=== PATIENT | female | born 1965 | race Caucasian/White ===

== ENCOUNTER → 2017-10-20 07:02 | Outpatient (CLI) | payer OTHER, SELFPAY ==
[2017-10-20 07:08] LABS: Bacteria 0 SEEN /hpf (None Seen); Mucous, Urine 0 SEEN /hpf (<or=2+); Red Blood Cells-Urine 0 SEEN /hpf (0-5)
[2017-10-20 09:53] LABS: Absolute Lymphocyte Count 4.15 X10^3/ul (0.83-4.51); Basophil# 0.01 X10^3/uL; Basophil% 0.1 % (0-1); Color, Urine Yellow (Yellow); Eosinophil# 0.11 X10^3/uL; Eosinophils% 1.3 % (0-5); Glucose, Dipstick Normal (Normal); Hematocrit 40.7 % (37-47); Ketone-Dipstick Negative (Negative); Leukocyte Esterase-Dipstick 25 /ul (Negative); Lymphocyte # 4.15 X10^3/ul (4.0); Lymphocyte % 47.9 % (19-41); Mean Corp Hgb Conc 31.9 g/gl (32-36); Mean Corpuscular Hgb 31.9 pg (27.0-32.0); Mean Platelet Vol. 10.1 fl (6.2-12.0); Monocyte# 0.35 X10^3/uL; Neutrophil # 4.03 X10^3/uL (2.7-7.7); Neutrophil % 46.6 % (47-70); Nitrite-Dipstick Negative (Negative); Occult Blood-Urine Negative /ul (Negative); POSITIVE COUNT NO; POSITIVE DIFFERENTIAL NO; POSITIVE MORPHOLOGY NO; Platelet Count 298 K/mm3 (150-450); Protein-Dipstick Negative (Negative); RBC Distribution Width CV 12.9 % (11.6-14.6); RBC Distribution Width SD 47.2 fl (35.1-43.9); Red Blood Count 4.07 M/mm3 (4.2-5.4); Specific Gravity, Urine 1.015 (1.002-1.030); Urine Bilirubin Dipstick Negative (Negative); Urine Clarity Sl. Cloudy (Clear); Urine Urobilinogen Normal (Normal); White Blood Count 8.7 K/mm3 (4.4-11.0)
[2017-10-20 09:59] LABS: Squamous Epithelial Cells - UA 5-10 SEEN /hpf (5-10); White Blood Cells 0-5 SEEN /hpf (0-5)
[2017-10-20 10:04] LABS: Erythrocyte Sedimentation Rate 9 mm/hr (0-30)
[2017-10-20 10:08] LABS: ALB/GLOB Ratio 0.9 RATIO (0.9-2.4); AST(SGOT) 10 U/L (15-37); Alanine Aminotransfer ALT/SGPT 28 U/L (13-56); Albumin, Serum 3.3 g/dL (3.2-5.0); Alkaline Phosphatase 65 U/L (45-117); Anion Gap 8 (5-15); BUN 14 mg/dL (7-18); BUN/Creat Ratio 20.2 RATIO (10-20); Calcium,Total 8.7 mg/dL (8.5-10.1); Chloride 103 mmol/L (98-107); Creatinine, Serum 0.69 mg/dL (0.55-1.02); EST Glomerular Filtration Rate 95 mL/min (>60); Est Glom Filt Rate - Afr Amer 115 mL/min (>60); Globulin 3.5 g/dL (2.2-4.2); Glucose 105 mg/dL (70-110); Potassium 3.8 mmol/L (3.5-5.1); Protein, Total 6.8 g/dL (6.4-8.2); Sodium Level 139 mmol/L (136-145)
[2017-10-21 20:09] LABS: Endomysial Antibody IgA Negative (Negative)
[2017-10-22 09:00] LABS: Immunoglobulin A 244 mg/dL (87-352); t-Transglutaminase IgA <2 U/mL (0-3)
== END ==
PROVIDERS: Family Provider Family Medicine; PCP Family Medicine; Visit Provider Family Medicine
DX: K52.9 Noninfective gastroenteritis and colitis, unspecified (principal); M54.5 Low back pain
CPT/HCPCS: 36415; 80053; 81001; 82784; 83516; 85025; 85652; 86255

== ENCOUNTER → 2018-10-06 09:08 | Outpatient (CLI) | payer OTHER, SELFPAY ==
[2018-10-06 11:35] LABS: Hematocrit 40.9 % (37-47); Hemoglobin 13.3 g/dl (12.0-15.0); Mean Corp Hgb Conc 32.5 g/gl (32-36); Mean Corpuscular Hgb 31.9 pg (27.0-32.0); Mean Corpuscular Volume 98.1 fL (81-99); Mean Platelet Vol. 10.1 fl (6.2-12.0); Platelet Count 290 K/mm3 (150-450); RBC Distribution Width CV 12.4 % (11.6-14.6); RBC Distribution Width SD 44.2 fl (35.1-43.9); Red Blood Count 4.17 M/mm3 (4.2-5.4); White Blood Count 7.4 K/mm3 (4.4-11.0)
[2018-10-06 11:37] LABS: Scan Indicated on CBC? Y/N NO
[2018-10-06 11:56] LABS: Follicle Stimulating Hormone 52.4 mIU/mL; Thyroid Stim Hormone (TSH) 0.85 uIU/mL (0.358-3.74)
--- OUTSIDE RECORDS SUMMARY | 2018-12-10 16:07 | XMS RPT_ITS ---
:1965 Author Organization OHIP Care Team Providers Name Role Phone Yessenia Sears Attending Unavailable Haresh Potts Attending Unavailable Haresh Potts Referring Unavailable Haresh Potts Primary Care Unavailable PROBLEMS PROBLEMS DATE TYPE CONDITION / CODE ATTENDING STATUS SOURCE 2018 Unknown N95.1 - Menopausal Yessenia Sears Active [facility] and female Community climacteric states / Hospital N95.1(ICD-10) Repository 10/20/2017 Unknown K52.9 - Noninfective Haresh Potts Active [facility] gastroenteritis and Community colitis, unspecified Hospital / K52.9(ICD-10) Repository 10/20/2017 Unknown M54.5 - Low back pain Haresh Potts Active [place] / M54.5(ICD-10) [facility] Repository PROCEDURES PROCEDURES No Procedure Records FoundRESULTS RESULTS CBC-COMPLETE BLOOD CNT Collected: 2018 Status: F Source: [facility] NO DIFF 9:12 AM [facility] REPOSITORY TYPE CODE TESTS RESULT OUT OF RANGE REFERENCE UNITS LAB L100.1000 4.4-11.0 K/mm3 Normal WBC 7.4 LAB L100.1200 4.2-5.4 M/mm3 Low RBC 4.17 LAB L100.1300 12.0-15.0 g/dl Normal HGB 13.3 LAB L100.1400 37-47 % Normal HCT 40.9 LAB L100.1500 81-99 fL Normal MCV 98.1 LAB L100.1600 27.0-32.0 pg Normal MCH 31.9 LAB L100.1700 32-36 g/gl Normal MCHC 32.5 LAB L100.1810 11.6-14.6 % Normal RDW CV 12.4 LAB L100.1820 35.1-43.9 fl High RDW SD 44.2 LAB L100.1900 150-450 K/mm3 Normal PLT 290 LAB L100.2000 6.2-12.0 fl Normal MPV 10.1 Performed By: #### L100.0500 #### [facility] [address], [place], [address] THYROID STIM HORMONE Collected: 2018 Status: F Source: [facility] (TSH) 9:12 AM [facility] REPOSITORY TYPE CODE TESTS RESULT OUT OF RANGE REFERENCE UNITS LAB L501.9520 0.358-3.74 uIU/mL Normal TSH 0.85 Performed By: #### L501.9520, L3100.5125 #### [facility] [address] [place], [address] FOLLICLE STIMULATING Collected: 2018 Status: F Source: [facility] HORMONE 9:12 AM [facility] REPOSITORY TYPE CODE TESTS RESULT OUT OF RANGE REFERENCE UNITS LAB L3100.5125 mIU/mL Normal FSH 52.4 Result Comment: NORMAL REFERENCE RANGES FEMALE FOLLICULAR 2.3 - 12.6 mIU/mL MID-CYCLE PEAK 5.2 - 17.5 mIU/mL LUTEAL 1.7 - 12.9 mIU/mL POST-MENOPAUSAL ON MHT 5.9 - 72.8 mIU/mL NOT ON MHT 12.7 - 132.2 mlU/mL MALE 0.7 - 10.8 mIU/mL NEW TEST METHOD AND REFERENCE RANGES FEBRUARY 07, 2012 Performed By: #### L501.9520, L3100.5125 #### [facility] [address] [place], [place], [id number] CBC W/DIFF, AUTOMATED Collected: 10/20/2017 Status: F Source: [place] 7:07 AM [facility] REPOSITORY TYPE CODE TESTS RESULT OUT OF RANGE REFERENCE UNITS LAB L100.1000 4.4-11.0 K/mm3 Normal WBC 8.7 LAB L100.1200 4.2-5.4 M/mm3 Low RBC 4.07 LAB L100.1300 12.0-15.0 g/dl Normal HGB 13.0 LAB L100.1400 37-47 % Normal HCT 40.7 LAB L100.1500 81-99 fL High MCV 100.0 LAB L100.1600 27.0-32.0 pg Normal MCH 31.9 LAB L100.1700 32-36 g/gl Low MCHC 31.9 LAB L100.1810 11.6-14.6 % Normal RDW CV 12.9 LAB L100.1820 35.1-43.9 fl High RDW SD 47.2 LAB L100.1900 150-450 K/mm3 Normal PLT 298 LAB L100.2000 6.2-12.0 fl Normal MPV 10.1 LAB L100.2100 47-70 % Low NEUT% 46.6 LAB L100.2200 19-41 % High LY% 47.9 LAB L100.2300 0-10 % Normal MONO% 4.0 LAB L100.2400 0-5 % Normal EO% 1.3 LAB L100.2500 0-1 % Normal BASO% 0.1 LAB L100.2550 0.0-0.9 % Normal IM GRAN % 0.100 Result Comment: IG% - Immature Granulocytes (promyelocytes, myelocytes and metamyelocytes) > 1% indicates that a LEFT SHIFT is Present. LAB L100.2620 2.0-7.7 X10 3/uL Normal Absolute Neut 4.0 LAB L100.2720 0.83-4.51 X10 3/ul Normal Absolute Lymph 4.15 Performed By: #### L100.0100, L101.9900 #### [facility] [address] [place], [place], [address] ERYTHROCYTE SED RATE Collected: 10/20/2017 Status: F Source: [place] 7:07 AM [facility] REPOSITORY TYPE CODE TESTS RESULT OUT OF RANGE REFERENCE UNITS LAB L102.0000 0-30 mm/hr Normal SED RATE 9 Performed By: #### L100.0100, L101.9900 #### [facility] [address] [place], [place], [id number] URINALYSIS, COMPLETE Collected: 10/20/2017 Status: F Source: [place] 7:07 AM [facility] REPOSITORY Order Comment: How was Urine Obtained? CLEAN CATCH TYPE CODE TESTS RESULT OUT OF RANGE REFERENCE UNITS LAB L400.3000 Yellow COLOR Normal Yellow LAB L400.3050 Clear Normal CLARITY Sl. Cloudy LAB L400.3200 Normal mg/dl Normal GLUCOSE, UR Normal LAB L400.3300 Negative mg/dL Normal BILIRUBIN URINE Negative LAB L400.3400 Negative mg/dl Normal KETONE UR Negative LAB L400.3465 1.002-1.030 Normal SP.GR. DIPSTX 1.015 LAB L400.3550 5.0 - 8.0 pH UR Normal 6.0 LAB L400.3600 Negative mg/dl PROT Normal DIPSTX Negative LAB L400.3700 Normal mg/dl Normal UROBILI Normal LAB L400.3750 Negative Normal NITRITE UR Negative LAB L400.3780 Negative /ul Normal OCCULT BLOOD-UR Negative LAB L400.3800 Negative /ul High LEUK 25 ESTERASE LAB L400.4050 0-5 /hpf WBC Normal 0-5 SEEN LAB L400.4100 0-5 /hpf 0 Normal RBC-UA SEEN LAB L400.4150 5-10 /hpf SQUAM Normal EPI 5-10 SEEN LAB L400.4300 None Seen /hpf 0 Normal BACTERIA SEEN LAB L400.4350 <or=2+ /hpf 0 Normal MUCUS, URINE SEEN Performed By: #### L400.0001 #### [facility] [address] [place], [place], [id number] COMPREHENSIVE METABOLIC Collected: 10/20/2017 Status: F [facility] REPOSIT[facility] TYPE CODE TESTS RESULT OUT OF RANGE REFERENCE UNITS LAB L501.0100 70-110 mg/dL Normal GLU 105 LAB L501.1000 7-18 mg/dL Normal BUN 14 LAB L501.1100 0.55-1.02 mg/dL Normal 0.69 CREAT,SERUM Result Comment: The validity of the calculated GFR AND GFRAA in patients over 70 years has not been determined. Clinical correlation is essential. LAB L501.1110 >60 mL/min Normal EST GFR 95 Result Comment: Non- GFR Calc LAB L501.1115 >60 mL/min Normal EST GFR - AA 115 Result Comment: GFR Calc LAB L501.1300 10-20 RATIO High BUN/CRE 20.2 LAB L501.1500 6.4-8.2 g/dL T Normal PROT 6.8 LAB L501.1800 3.2-5.0 g/dL Normal ALB 3.3 LAB L501.1950 2.2-4.2 g/dL Normal GLOB 3.5 LAB L501.2000 0.9-2.4 RATIO Normal A/G 0.9 LAB L501.2200 8.5-10.1 mg/dL CA Normal 8.7 LAB L501.4100 15-37 U/L Low AST 10 LAB L501.4305 45-117 U/L Normal ALK P 65 LAB L501.4405 13-56 U/L Normal ALT 28 Result Comment: Please note revised ALT reference range effective 2017. LAB L501.4600 0.20-1.00 mg/dL Normal T BILI 0.40 LAB L501.5300 136-145 mmol/L Normal NA 139 LAB L501.5600 3.5-5.1 mmol/L Normal K 3.8 LAB L501.5900 98-107 mmol/L Normal CL 103 LAB L501.6100 21.0-32.0 mmol/L Normal CO2 28.0 LAB L501.6200 5-15 Normal GAP 8 Performed By: #### L500.4050 #### [facility] [address] [place], [address] CELIAC DISEASE Collected: 10/20/2017 Status: F Source: [facility] PROFILE 7:07 AM [facility] REPOSITORY TYPE CODE TESTS RESULT OUT OF RANGE REFERENCE UNITS LAB L3200.1400 87-352 mg/dL Normal IMMUNO A 244 Result Comment: Performed at: - [facility] [place] [id number] Software Development Project Manager: Dov Mohr PhD, Phone: [phone] LAB L3286.0207 0-3 U/mL Normal tTG IGA <2 Result Comment: Negative 0 - 3 Weak Positive 4 - 10 Positive >10 Tissue Transglutaminase (tTG) has been identified as the endomysial antigen. Studies have demonstr- ated that endomysial IgA antibodies have over 99% specificity for gluten sensitive enteropathy. LAB L3410.6846 Negative Normal ENDOMYSIAL IGA Negative Performed By: #### L3410.2400 #### [facility] (refer to report for specific site) refer to report for address and phone number ALLERGIES ALLERGIES DATE TYPE / CODE NAME / CODE REACTION SEVERITY SOURCE 10/10/2017 Drug clidinium Unknown Unknown [facility] Allergy/416 bromide/[id number] Hospital 671994([facility] 47(RXNORM) Repository ED CT) 10/10/2017 Drug cholestyramine/F Unknown Unknown [facility] Allergy/416 [id number]([facility] 135782(SNOM ) Repository ED CT) 10/10/2017 Drug chlordiazepoxide Unknown Unknown [facility] Allergy/416 /[id number]([facility] 441366[facility] ED [facility]) 10/10/2017 Drug hydrocodone/F006 Nausea Unknown [facility] Allergy/416 728023(RXNORM) [facility] 121283(SNOM Repository ED CT) 10/10/2017 Drug acetaminophen/F0 Nausea Unknown [place] [facility] Allergy/416 [id number](RXNORM) Hospital 239696(SNOM Repository ED CT) 10/10/2017 Drug sucrose/[id number] Unknown Unknown [facility] Allergy/416 98(RXNORM) Hospital 782071(SN Repository ED CT) ENCOUNTERS ENCOUNTERS ADMIT/DISCHARGE ACCOUNT ADMITTING ENCOUNTER LOCATION SOURCE NUMBER CLASS 2018 [id number] Ambulatory [place] [facility] 5 [facility] ing:WOBLAB Repository 10/20/2017 [id number] Ambulatory [place] 7 [facility] ing:MTLAB Repository PAYERS PAYERS ENCOUNTER GUARANTOR PAYER SUBSCRIBER SOURCE 2018 [place] [address] [place] [id number] SR Insurance:Geno MOOREOB: [facility] [address] icy Number: [id number] [address]Lac: [id number] Repository Date:[id number] [address]SW: 2018 Secondary NOT GIVENUNK [place] Insurance:SELF PAY [facility] Number: Effective Repository Date:2018 10/20/2017 [place] [address] Primary [address] [address] [place] [id number] SR Insurance:Geno DECKER: [facility] [address] y Number: [id number] [address]Ols: [id number] Repository Date:3583-12-62[address] [address]RP: 10/20/2017 Secondary NOT GIVENUNK [place] Insurance:SELF PAY [facility] Number: Effective Repository Date:2017-10-20
== END ==
PROVIDERS: Visit Provider Obstetrics & Gynecology
DX: N95.1 Menopausal and female climacteric states (principal)
CPT/HCPCS: 36415; 83001; 84443; 85027

== ENCOUNTER → 2019-07-24 07:05 | Outpatient (CLI) | payer OTHER, SELFPAY ==
[2018-11-04 08:51] VITALS: BMI 30.7
[2019-07-24 10:37] LABS: Anion Gap 7 (5-15); BUN 19 mg/dL (7-18); BUN/Creat Ratio 20.5 RATIO (10-20); Calcium,Total 9.1 mg/dL (8.5-10.1); Chloride 104 mmol/L (98-107); Cholesterol 239 mg/dL (200); Creatinine, Serum 0.93 mg/dL (0.55-1.02); EST Glomerular Filtration Rate 67 mL/min (>60); Est Glom Filt Rate - Afr Amer 82 mL/min (>60); Glucose 101 mg/dL (74-106); High Density Lipoprotein 54 mg/dL; Potassium 4.2 mmol/L (3.5-5.1); Sodium Level 140 mmol/L (136-145); Triglycerides 161 mg/dL; Very Low Density Lipoprotein 32 mg/dL (5-40)
== END ==
PROVIDERS: Family Provider Family Medicine; PCP Family Medicine; Referring Provider Family Medicine; Visit Provider Family Medicine
DX: Z13.1 Encounter for screening for diabetes mellitus (principal); E78.00 Pure hypercholesterolemia, unspecified
CPT/HCPCS: 36415; 80048; 80061

== ENCOUNTER → 2020-11-03 12:08 | Outpatient (CLI) | payer OTHER, SELFPAY ==
[2018-11-04 08:51] VITALS: BMI 30.7
--- NOTE | 2020-11-03 12:26 | STEWCON_ITS ---
Reason For Study: Chest Pain Stress Results Protocol: Haile Protocol WITH DEFINITY Maximum Predicted HR: 166 bpm Target HR: 141 bpm % Maximum Predicted HR: 95 % Heart Stage Duration Rate BP Comment (mm:ss) (bpm) baseline 78 118/76no chest pain stage 1 3:00 137 138/78no chest pain, mild shortness of beath stage 2 1:53 157 148/82moderate shortness of breath no chest pain. shortness of breath resolved quickly. 4ml total recovery 86 132/78definity given. Stress Duration: 4:53 mm:ss Maximum Stress HR: 157 bpm Baseline Echocardiogram Findings Stress Echo Wall motion Data Resting WM Intermediate WM Stress WM Interpretation Summary Exercise stress echocardiogram. 55-year-old lady with a history of chest pain and family history. Next Stress protocol: Resting EKG demonstrates normal sinus rhythm with a rate of [address] changes noted. The patient exercised according to regular Haile protocol for total duration of 4 minutes and 53 seconds. The maximum heart rate attained was 166 bpm which was 100% of max impacted heart rate. The maximum workload attained was 7 metabolic equivalents. At rest there were nonspecific ST changes noted with no meet the criteria for ischemia. At peak exercise there was downsloping ST depression noted in lead III and aVF of approximately [address] depression of 1 mm noted in V4 V5 and V6. The test was terminated due to the above. No chest pain was noted there was mild shortness of breath present. During recovery there was a rapid upsloping ST change noted. The above is not diagnostic of ischemia. The resting blood pressure was 118/76 with a peak blood pressure 148/88 mmHg. This was a normal blood pressure response to exercise. Stress echocardiogram. Stress and resting echocardiographic images were obtained with and without Definity enhancement. The resting ejection fraction was noted to be approximately 60%. At peak exercise there was thickening of all chao with improvement in left ventricular ejection fraction estimated to be 70%. No wall motion abnormalities were noted to suggest ischemia. Conclusion: Exercise stress echo with no obvious echocardiographic changes suggestive of ischemia at a moderate workload. Inconclusive EKG changes noted. No symptoms suggestive of angina. Ordering Physician: Haresh Clark Referring Physician: Gutierrez Mix MD Performed By: Pat Good, JOAN, RVT
[2020-11-03 12:36] LABS: Absolute Neutrophil Count 4.6 X10^3/uL (2.0-7.7); Basophil# 0.02 X10^3/uL; Basophil% 0.2 % (0-1); Eosinophil# 0.06 X10^3/uL; Eosinophils% 0.7 % (0-5); Hematocrit 40.8 % (37-47); Hemoglobin 13.3 g/dL (12.0-15.0); Lymphocyte % 40.6 % (19-41); Mean Corp Hgb Conc 32.6 g/dL (32-36); Mean Corpuscular Hgb 31.1 pg (27.0-32.0); Mean Corpuscular Volume 95.3 fL (81-99); Mean Platelet Vol. 9.4 fl (6.2-12.0); Monocyte# 0.43 X10^3/uL; NRBC Flagged by Analyzer 0 % (0-5); Neutrophil # 4.59 X10^3/uL (2.7-7.7); Neutrophil % 53.3 % (47-70); Platelet Count 313 K/mm3 (150-450); RBC Distribution Width CV 12.2 % (11.6-14.6); RBC Distribution Width SD 42.5 fl (35.1-43.9); Red Blood Count 4.28 M/mm3 (4.2-5.4); White Blood Count 8.6 K/mm3 (4.4-11.0)
[2020-11-03 13:07] LABS: ALB/GLOB Ratio 0.9 RATIO (0.9-2.4); AST(SGOT) 16 U/L (15-37); Alanine Aminotransfer ALT/SGPT 20 U/L (13-56); Albumin, Serum 3.5 g/dL (3.2-5.0); Alkaline Phosphatase 69 U/L (45-117); Anion Gap 8 (5-15); BUN 13 mg/dL (7-18); BUN/Creat Ratio 15.7 RATIO (10-20); Chloride 105 mmol/L (98-107); Cholesterol 292 mg/dL (200); Creatinine, Serum 0.83 mg/dL (0.55-1.02); EST Glomerular Filtration Rate 76 mL/min (>60); Est Glom Filt Rate - Afr Amer 92 mL/min (>60); Globulin 3.9 g/dL (2.2-4.2); Glucose 98 mg/dL (74-106); High Density Lipoprotein 49 mg/dL; Protein, Total 7.4 g/dL (6.4-8.2); Sodium Level 137 mmol/L (136-145); Triglycerides 246 mg/dL; Very Low Density Lipoprotein 49 mg/dL (5-40)
== END ==
PROVIDERS: PCP Family Medicine; Referring Provider Family Medicine; Visit Provider Family Medicine
DX: R07.9 Chest pain, unspecified (principal); R10.11 Right upper quadrant pain; Z13.220 Encounter for screening for lipoid disorders
CPT/HCPCS: 36415; 80053; 80061; 85025; 93017; 93350; Q9957; A4216; C8928

== ENCOUNTER → 2020-11-14 08:27 | Outpatient (CLI) | payer OTHER, SELFPAY ==
[2018-11-04 08:51] VITALS: BMI 30.7
--- NOTE | 2020-11-14 08:29 | US_ITS ---
STUDY: ABDOMINAL ULTRASOUND - RIGHT UPPER QUADRANT REASON FOR VISIT: Female, 55 years old RUQ PAIN TECHNIQUE: Ultrasound evaluation of the right upper quadrant was performed with real-time and static ndiaye-scale imaging. TECHNICAL QUALITY: Adequate. COMPARISON: Comparison is made with prior ultrasound of the abdomen dated 04/09/2016. FINDINGS: Liver: The liver is mildly enlarged and measures 19.1 cm. There is increased echogenicity consistent with fatty infiltration. The bile ducts are within normal limits. There is hepatic color flow. The direction of portal flow is hepatopetal. There is no demonstrated mass lesion. Gallbladder: Normal distended gallbladder. The gallbladder wall measures 3.0 mm. There is a negative sonographic Coyne''s sign. There is no pericholecystic fluid. There is a solitary echogenic gallstone within the neck of the gallbladder. Common Bile Duct (C.B.D.): The common bile duct measures 4 mm. Pancreas: Normal size of the head, body of the pancreas. The tail portion of the pancreas is obscured due to overlying bowel gas. There is normal echogenicity of the pancreas. There is no demonstrated pancreatic mass or cyst. Right Kidney: Normal size of the right kidney. The right kidney measures 10.7 cm x 5.9 cm x 5.3 cm. Normal renal cortex. The right cortex measures 1.8 cm. There is no demonstrated renal mass or cyst. There is no right hydronephrosis. US/Abdomen Limited IMPRESSION: Mild hepatomegaly and fatty infiltration of the liver. Solitary gallstone in the neck of the gallbladder. Electronically Signed: Tod Monroe MD at 10:25 EST , Service support ,
== END ==
PROVIDERS: PCP Family Medicine; Referring Provider Family Medicine; Visit Provider Family Medicine
DX: K76.0 Fatty (change of) liver, not elsewhere classified (principal); K80.20 Calculus of gallbladder without cholecystitis without obstruction
CPT/HCPCS: 76705

== ENCOUNTER → 2020-11-21 07:55 | Outpatient (CLI) | payer OTHER, SELFPAY ==
[2018-11-04 08:51] VITALS: BMI 30.7
--- NOTE | 2020-11-21 07:57 | ECHOCS_ITS ---
Reason For Study: Chest Pain Procedure This was a 2D Doppler, Color Flow transthoracic echocardiogram. The study was technically difficult. Contrast injection was performed. Exam performed in department. Left Ventricle Normal LV size. Left ventricular systolic function is normal. The estimated ejection fraction is 60 %. No evidence for diastolic dysfunction. No regional wall motion abnormalities noted. Right Ventricle Normal RV size. Normal systolic function. Atria Normal left atrium. Normal right atrium. No doppler evidence for ASD. Mitral Valve There is mild mitral annular calcification. Mild diffuse mitral valve thickening. Trivial mitral valve insufficiency. Tricuspid Valve Normal tricuspid valve. Trivial tricuspid valve insufficiency. Unable to estimate RV systolic pressure/pulmonary artery pressure due to technically difficult study. Aortic Valve Trisinus/trileaflet aortic valve. Normal aortic valve. Pulmonic Valve The pulmonic valve is not well visualized. Trivial pulmonic valve insufficiency. Great Vessels Normal sized aortic root. Pericardium/Pleural No pericardial effusion. Medication Diluted definity 3ml given slow IV push to enhance endocardial definition. MMode/2D Measurements & Calculations LVIDd: 4.6 cm IVSd: 0.92 cm Ao root diam: 3.0 cm LVIDs: 3.0 cm LVPWd: 0.89 cm RVDd: 3.6 cm FS: 36.0 % LAV(MOD-bp): 38.1 ml LVAd ap4: 27.6 cm2 SV(MOD-sp4): 49.9 ml LAV(MOD-bp) Indexed: 17.6 ml/m2 EDV(MOD-sp4): 81.8 ml LAV(MOD-sp2): 49.3 ml EDV(sp4-el): 84.8 ml LAV(MOD-sp4): 24.3 ml LVAs ap4: 15.3 cm2 ESV(MOD-sp4): 31.9 ml ESV(sp4-el): 31.3 ml EF(MOD-sp4): 61.0 % EF(sp4-el): 63.1 % SV(sp4-el): 53.5 ml LA A4 area: 11.0 cm2 LA dimension(2D): 3.6 cm RA A4 area: 11.9 cm2 Doppler Measurements & Calculations MV E max mike: 87.7 cm/sec Lat Peak E' Mike: 10.5 cm/sec Med Peak E' Mike: 8.7 cm/sec MV A max mike: 68.9 cm/sec E/E' lat: 8.4 E/E' med: 10.1 MV E/A: 1.3 Ao V2 max: 106.8 cm/sec LV V1 max: 98.9 cm/sec PA V2 max: 82.8 cm/sec Ao max P.6 mmHg LV V1 max P.9 mmHg Ao V2 mean: 76.3 cm/sec Ao mean P.5 mmHg Ao V2 VTI: 21.7 cm PI end-d mike: 94.4 cm/sec Interpretation Summary The study was technically difficult. Contrast injection was performed. Left ventricular systolic function is normal. The estimated ejection fraction is 60 %. There is mild mitral annular calcification. Mild diffuse mitral valve thickening. Trivial mitral valve insufficiency. Trivial tricuspid valve insufficiency. Trivial pulmonic valve insufficiency. Unable to estimate RV systolic pressure/pulmonary artery pressure due to technically difficult study. No evidence for diastolic dysfunction. Ordering Physician: Haresh Clark Referring Physician: Haresh Clark Performed By: Pat Good, JOAN, RVT
== END ==
PROVIDERS: PCP Family Medicine; Referring Provider Family Medicine; Visit Provider Family Medicine
DX: R07.9 Chest pain, unspecified (principal)
CPT/HCPCS: 93306; Q9957; A4216; C8929

== ENCOUNTER → 2021-05-06 15:22 | Outpatient (CLI) | payer OTHER, SELFPAY ==
--- NOTE | 2021-05-06 15:30 | RAD_ITS ---
STUDY: X-RAY - LEFT FOOT CLINICAL: Female, 55 years old. Foot and heel pain. TECHNIQUE: 3 view(s) of the foot. COMPARISON: None. FINDINGS: Superior and inferior calcaneal spurs. Normal visualized subtalar, talonavicular, calcaneocuboid, tarsal and tarsometatarsal articulations. Normal metatarsi. Mild loss of articular cartilage of the MTP and IP joints. The soft tissue structures are unremarkable. 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 No acute abnormality, erosive changes or periostitis. Electronically Signed: Atif Ramirez MD at 12:29 EDT , Service support ,
== END ==
PROVIDERS: PCP Family Medicine; Referring Provider Podiatrist; Visit Provider Podiatrist
DX: M76.62 Achilles tendinitis, left leg (principal); M19.072 Primary osteoarthritis, left ankle and foot; M77.32 Calcaneal spur, left foot
CPT/HCPCS: 73630

== ENCOUNTER → 2022-01-19 | Outpatient (CLI) | payer OTHER, SELFPAY ==
--- NOTE | 2022-01-19 08:22 | BI_ITS ---
MAMMOGRAPHY - BILATERAL SCREENING REASON FOR EXAM: Female, 56 years old. Routine annual screening examination. PERTINENT HISTORY: Non-contributory. TECHNIQUE: Digital bilateral breast geeta (3D mammographic acquisition) in the CC and MLO projections. 2-D mediolateral oblique (MLO) and craniocaudad (CC) views of both breasts were obtained. CAD: Full Field Digital Mammography with Computer Added Detection was performed. COMPARISON: No comparison mammograms available at this time. If any prior films become available, an addendum to this report can be generated. FINDINGS: Breast Composition: The breasts are extremely dense, which lowers the sensitivity of mammography. There are no dominant masses or suspicious calcifications. Benign appearing bilateral axillary lymph nodes. No other significant abnormalities are identified. BI/SCRN MAMM (CAD)W/GEETA BILAT IMPRESSION: Negative screening mammogram. Yearly followup mammogram recommended. (A) ASSESSMENT CATEGORY: BIRADS Category 2: Benign. A letter regarding these results will be sent to the patient by the facility within 30 days. Approximately 10% of breast cancers are not detected by mammography. A normal mammogram should not delay biopsy of a clinically suspicious abnormality. [id number] Electronically Signed: Tod Monroe MD at 10:16 EDT ,
[2022-01-19 08:50] LABS: Vitamin D,25 Hydroxy 19.3 ng/mL
[2022-01-19 09:17] LABS: Cholesterol 269 mg/dL (200); Glucose 112 mg/dL (74-106); High Density Lipoprotein 51 mg/dL; Thyroid Stim Hormone (TSH) 1.77 uIU/mL (0.358-3.74); Triglycerides 218 mg/dL; Very Low Density Lipoprotein 44 mg/dL (5-40)
== END | disposition home or self-care (01) ==
LOC: OPBI 08:22
PROVIDERS: Referring Provider Nurse Practitioner Women's Health; Visit Provider Nurse Practitioner Women's Health
DX: Z12.31 Encounter for screening mammogram for malignant neoplasm of breast (principal); Z13.1 Encounter for screening for diabetes mellitus; Z13.220 Encounter for screening for lipoid disorders; Z13.29 Encounter for screening for other suspected endocrine disorder; Z13.21 Encounter for screening for nutritional disorder
CPT/HCPCS: 36415; 77063; 77067; 80061; 82306; 82947; 84443

== ENCOUNTER → 2022-06-18 | Outpatient (CLI) | payer OTHER, SELFPAY ==
--- NOTE | 2022-06-18 08:30 | MRI_ITS ---
STUDY: MRI LEFT ANKLE WITHOUT CONTRAST REASON FOR EXAM: Female, 56 years old. LEFT ankle calcaneal spur TECHNIQUE: Standardized fat and water weighted pulse sequences were obtained in all 3 orthogonal planes. COMPARISON: Left foot x-ray dated May 06, 2021 FINDINGS: Normal subcutis adipose space. Normal posterior tibialis tendon. Normal flexor digitorum longus tendon. Normal flexor hallucis longus tendon. Normal peroneus longus and brevis tendons. Normal tibialis anterior tendon. Normal extensor hallucis longus tendon. Normal extensor digitorum longus tendons. Normal Achilles tendon and teno-osseous insertion. Normal plantar fascia. A small midline plantar calcaneal spur is present. The underlying plantar fascia of the central cord demonstrates mild thickening and increased signal abnormality, compatible with plantar fasciitis. The remaining aspects of the plantar fascia are normal. No visualized plantar bursal fluid. No signal abnormality is present in the trabecula or cortex of the calcaneus. Normal intrinsic muscles of the rearfoot. Normal distal tibiofibular syndesmotic ligamentous complex. The central and inferior fibers of the anterior talofibular ligament are completely torn. A small remnant of superior ATFL fibers remaining intact. Normal subtalar ligaments and sinus tarsi. Normal deltoid ligamentous complexes. Normal plantar calcaneonavicular (spring) ligament. Normal tibiotalar articulation. Normal talar dome. Normal subtalar articulations. Normal talonavicular articulation. Normal calcaneocuboid articulation. Normal navicular-cuneiform articulations. MRI/Lower Ext Joint Only (Routine) IMPRESSION: 1. Small midline plantar calcaneal spur. The underlying plantar fascia of the central cord demonstrates mild thickening and increased signal abnormality, compatible with plantar fasciitis. Electronically Signed: Brandon Knox MD at 12:37 EDT Reading Location ID and State: [facility] / [place] , Service support ,
== END | disposition home or self-care (01) ==
LOC: MRI 08:04
PROVIDERS: PCP Family Medicine; Referring Provider Podiatrist; Visit Provider Podiatrist
DX: M77.32 Calcaneal spur, left foot (principal)
CPT/HCPCS: 73721

== ENCOUNTER 2022-08-13 06:02 | Day surgery (SDC) | payer OTHER, SELFPAY ==
[2022-08-13] VITALS (7 sets, daily range): BP systolic 123–143; BP diastolic 69–89; PULSE 70–84; RESP 16–18; TEMP 36.2–36.6; O2SAT 94–99; BMI 34.3
[2022-08-13] MEDS: Lactated Ringers 1,000 ML 15 ML IV (06:42)
[2022-08-13] MEDS: Cefazolin 1 GM/50 ML BAG IV (07:30)
--- NOTE | 2022-08-13 09:25 | RAD_ITS ---
STUDY: X-RAY - LEFT FOOT CLINICAL: Female, 56 years old. Postoperative evaluation. TECHNIQUE: 2 view(s) of the foot through casting material. COMPARISON: May 06, 2021. FINDINGS: Stable calcaneal spur. Osteoarthritic changes of the MTP and IP joints unaltered . The soft tissue structures are unremarkable. RAD/Foot 2 Views IMPRESSION: Stable foot. No acute abnormality. Electronically Signed: Atif Ramirez, at 10:07 EST ,
--- NOTE | 2022-08-13 12:00 | PCM.OPRPT ---
Report of Operation Date of Procedure: 08/13/22 Pre-Operative Diagnosis: Painful Retrocalcaneal Exostosis Left foot Post-Operative Diagnosis: same Surgery/Procedure Performed:: Excision retrocalcaneal exostosis with reattachment of the Achilles tendon left foot Description of Surgical Findings:: large retrocalcaneal spur Surgeon: Laura Lemon Type of Anesthesia: General and Supplemental (popliteal) Anesthesiologist: Celestino Sage Specimen's removed: bone from calcaneus Drains: none Estimated Blood Loss (mL): <10 cc's Description of Procedure: Under mild sedation, the patient was brought to the OR and a popliteal block was administered by anesthesia. The patient was placed prone on the operating table following general anesthesia. She was well padded at all mitesh prominences. A pneumatic thigh tourniquet was placed about the patient's left thigh and inflated to 350mmHg. The foot and lower left leg were scrubbed, prepped, and draped in the usual aseptic manner. Attention was directed to the left posterior calcaneus where an approximately 5 cm linear longitudinal incision was made medial to the midline of the Achilles. The incision was deepened through sharp and blunt dissection to the level of the Achilles were the paratenon was disected from the Achilles with a longitudinal incision and retracted. The Achilles was within normal limits for appearance and was then dissected from its osseus attachment at the posterior calcaneus. There was a longitudinal incision made at the distal aspect of the tendon and it was split in half superficially about 2 cm. The sural nerve was protected and not visible due to the incision placement. Next, the retrocalcaneal spur was removed with a sagittal saw and all rough edges were smoothed with a hand bur. The wound was flushed with copious amounts of NSS. Next, 4 parallel airplane pilot helper holes were drilled in a square orientation and there perpendicular to the Achilles. The Speed Bridge was then put in place with anchors in all 4 holes which achieved appropriate reattachment length of the Achilles and were stable within the bone. The wound was again flushed with NSS. The Achilles was repaired with 2-0 vicryl sutures. The paratenon was reapproximated and coapted with 3-0 vicryl sutures, as were the subcutaneous tissues. The skin was reapproximated and coapted utilizing 3-0 prolene sutures. Upon completion of the procedure, a sterile compressive dressing consisting of a Jump Start dressing, 4x4's, kerlix, and ABD pad was applied. A well padded posterior splint was applied and secured with magdy wraps. The tourniquet was removed and a prompt hyperemic response was seen to all digits of the left foot. The patient tolerated the procedure and anesthesia and was transferred to the recovery room with vital signs stable and vascular status intact to all digits of the left foot. She will be discharged home with written and oral post operative instructions. She is to be NWB to left foot with crutches and knee walker. She is to take pain medication as directed. Rest, ice, elevate the operative foot and keep dressing intact. Contact Dr. Lemon for all post operative care and if any problems arise. Pain prescription was e-scribed previously for Percocet. Grafts/Implants Used: Arthrex Achilles Speed Bridge Complications none Admit VTE Documentation VTE Pharm Prophylaxis ordered?: No Reason prophylaxis not ordered:: Treatment Not Indicated
== END 2022-08-13 10:35 | disposition home or self-care (01) ==
LOC: SDC 06:02 → AC 06:04
PROVIDERS: PCP Family Medicine; Referring Provider Podiatrist; Visit Provider Podiatrist
PROC: (CPT 28119; principal; 2022-08-13 07:15)
DX: M77.32 Calcaneal spur, left foot (principal); E78.00 Pure hypercholesterolemia, unspecified; E55.9 Vitamin D deficiency, unspecified; R73.01 Impaired fasting glucose; E66.9 Obesity, unspecified; Z68.34 Body mass index [BMI] 34.0-34.9, adult; Z79.899 Other long term (current) drug therapy
CPT/HCPCS: 28120; 01480; 64445; 73620; J7120; J2405

== ENCOUNTER → 2022-09-30 | Outpatient (CLI) | payer OTHER, SELFPAY ==
[2022-09-30 10:18] LABS: Hemoglobin A1c 6.4 % (3.8-5.6)
[2022-09-30 10:32] LABS: Vitamin D,25 Hydroxy 24.2 ng/mL
[2022-09-30 10:35] LABS: AST(SGOT) 11 U/L (15-37); Alanine Aminotransfer ALT/SGPT 23 U/L (13-56); Albumin, Serum 3.6 g/dL (3.2-5.0); Alkaline Phosphatase 89 U/L (45-117); Anion Gap 7 (5-15); BUN 14 mg/dL (7-18); BUN/Creat Ratio 16.1 RATIO (10-20); Calcium,Total 9.5 mg/dL (8.5-10.1); Chloride 103 mmol/L (98-107); Cholesterol 217 mg/dL (200); Creatinine, Serum 0.87 mg/dL (0.55-1.02); EST Glomerular Filtration Rate 72 mL/min (>60); Est Glom Filt Rate - Afr Amer 87 mL/min (>60); Globulin 3.5 g/dL (2.2-4.2); Glucose 116 mg/dL (74-106); High Density Lipoprotein 54 mg/dL; Protein, Total 7.1 g/dL (6.4-8.2); Sodium Level 138 mmol/L (136-145); Triglycerides 175 mg/dL; Very Low Density Lipoprotein 35 mg/dL (5-40)
== END | disposition home or self-care (01) ==
PROVIDERS: PCP Family Medicine; Referring Provider Family Medicine; Visit Provider Family Medicine
DX: E78.2 Mixed hyperlipidemia (principal); R73.01 Impaired fasting glucose; E55.9 Vitamin D deficiency, unspecified
CPT/HCPCS: 36415; 80053; 80061; 82306; 83036

== ENCOUNTER 2023-01-10 11:00 | Outpatient (RCR) | payer OTHER, SELFPAY ==
--- NOTE | 2022-12-17 13:21 | HP.PTEVAL_ITS ---
Patient's Visit Information BENTON DON is a 57 year old F referred to Physical Therapy by Dr. Laura Lemon DPM with a diagnosis of L achilles tendonitis. Date of Evaluation: 12/17/22 Physical Therapist: Edy Harden PT, ATC - Visit Plan Frequency: 2x /Week Duration: 2 Weeks Plan: L ankle DF stretches, gait training, core strengthening, L ankle strengthening, and HEP - Subjective DOS: 08/13/22. Pt reports she had surgery at that time to remove a bone spur under the achilles tendon. Pt reports she was in placed into a boot for approximately 8 weeks and has been walking in a shoe since. Pt notes she has a lot less pain now, but notes she continues to limp which is starting to cause R hip and LBP. Pt reports she still has some tingling in her L foot from the surgery, but notes no other L LE radiculopathy at this time. Pt reports she has stairs at home, but notes she has to negotiate them one step at a time. Pt denies sleep difficulty at this time secondary to pain. Pt reports she used to go walking a lot prior to her surgery, but notes she is still limited in that. Pt also notes increased pain and swelling with cleaning her house. Pt is currently retired at this time. L foot pain is 5/10 at rest, 8/10 at worst (by t he end of the day) - Pain L foot pain Pain Intensity (Out of 10): 5 Pain Intensity Range: 8 - Objective Neuro: B LE sensation is WNL to light touch. B patellar reflex 1/3. ankle ROM: R ankle DF= 4, PF= 65 degrees; L ankle DF= 4, PF= 65 degrees. MMT: L ankle PF is 4-5. All other B LE MMT 5/5 throughout. Gait: Pt lacks both heel strike and toe off with L LE - Balance/Special Test Scores Lower Extremity Functional Score: 45 - Goals Goal 1:: Pt will demonstrate a normalized gait pattern to aid with decreasing LBP Goal Time Frame: 2-4 Weeks Goal 2:: Increase L ankle DF ROM x 5-10 degrees to aid with restoring a more normalized gait pattern Goal Time Frame: 2-4 Weeks Goal 3:: I with HEP Goal Time Frame: 2-4 Weeks - Rehabilitation Potential Physical Therapy Diagnosis: Pt has L heel pain and an altered gait pattern secondary to limited ankle DF ROM and weakness Rehabilitation Potential: Good - Anticipated Interventions Patient/Client Instruction: Educate patient on: Condition, Plan of Care For the Purpose of:: To improve self management Therapeutic Exercise to Include: Strength training, Endurance training, Balance training, Flexibilty training, Gait and locomotor training, Dynamic Lumbar Stabilization For the Purpose of:: To increase ROM, To improve muscle performance and motor function, To improve gait and locomotor functions Thank you for the opportunity to evaluate your patient. For Medicare and Medicare HMO plans, please review the plan of care and approve it. It will need to be FAXED BACK to us at [phone] for Medicare purposes. For Medicare only, by signing this I certify the plan of care. Please let me know if there are questions or concerns regarding this plan of care. Physician Signature: Date:
--- NOTE | 2023-03-24 11:23 | HP.PT.NRP ---
Patient Information Patient Information: BENTON DON was seen in my office for initial evaluation on 12/17/22. The following Plan of Care was established for this patient: POC Established Initial Frequency: 2x /Week Initial Duration: 2 Weeks Anticipated Interventions Patient/Client Instruction: Educate patient on: Condition and Plan of Care For the Purpose of:: To improve self management Therapeutic Exercise to Include: Strength training, Endurance training, Balance training, Flexibilty training, Gait and locomotor training and Dynamic Lumbar Stabilization For the Purpose of:: To increase ROM, To improve muscle performance and motor function and To improve gait and locomotor functions Last Seen Last Seen: This patient was last seen in our office . Pertinent comments regarding their Physical therapy will appear below: Pt was treated for 4 PT visits for L achilles tendonitis through the date of 01/10/23. Pt has not returned through todays date and is discontinued at this time. At this point I will be discontinuing this patient from physical therapy. I would be happy to see this patient again in the future if found appropriate by the physician. Thank you! Edy Harden, PT, ATC Balance/Gait/Functional tests Balance/Special Test Scores Lower Extremity Functional Score: 45
== END 2023-01-10 19:00 | disposition home or self-care (01) ==
LOC: PT 11:00
PROVIDERS: PCP Family Medicine; Referring Provider Podiatrist; Visit Provider Podiatrist
DX: M76.62 Achilles tendinitis, left leg (principal); M77.32 Calcaneal spur, left foot
CPT/HCPCS: 97035; 97140; 97161

== ENCOUNTER → 2023-02-22 | Outpatient (CLI) | payer OTHER, SELFPAY ==
[2023-02-22 12:52] LABS: Vitamin D,25 Hydroxy 43.7 ng/mL
[2023-02-22 13:07] LABS: Hemoglobin A1c 6.3 % (3.8-5.6)
[2023-02-24 12:08] LABS: Vitamin D 1,25-Dihydroxy 64.6 pg/mL (24.8-81.5)
== END | disposition home or self-care (01) ==
LOC: MTLAB 09:28
PROVIDERS: PCP Family Medicine; Referring Provider Family Medicine; Visit Provider Family Medicine
DX: R73.01 Impaired fasting glucose (principal); E55.9 Vitamin D deficiency, unspecified
CPT/HCPCS: 36415; 82306; 82652; 83036

== ENCOUNTER 2023-06-09 07:30 | Observation (INO) | payer OTHER, SELFPAY ==
[2023-06-09] VITALS (8 sets, daily range): BP systolic 104–139; BP diastolic 57–77; PULSE 73–95; RESP 14–18; TEMP 36.1–36.7; O2SAT 94–100; BMI 32.5; BMI 33.3
--- NOTE | 2023-06-09 07:39 | US_ITS ---
EXAM: US ABDOMEN LIMITED, GALLBLADDER CLINICAL INDICATION: PAIN TECHNIQUE: Real-time ultrasound of the right upper quadrant with image documentation. COMPARISON: 11/14/2020. FINDINGS: LIVER: Liver echogenicity appears increased suggesting diffuse parenchymal liver disease, likely steatosis. GALLBLADDER: 12 mm stone noted along the neck of the gallbladder. No gallbladder wall thickening is demonstrated. No pericholecystic fluid. Negative sonographic Coyne''s sign. COMMON BILE DUCT: Common bile duct measures 4 cm in diameter. PANCREAS: Pancreas is obscured by overlying bowel gas. US/Gallbladder IMPRESSION: 1. Parenchymal liver disease. 2. Cholelithiasis. Electronically Signed: Rene Mahmood MD at 9:11 EDT ,
--- NOTE | 2023-06-09 07:43 | EDS_ITS ---
HPI HPI - GI History of Present Illness Chief Complaint: Abd Pain Detail of Chief Complaint: Right upper quadrant abdominal pain since 1600 yesterday Informant: patient Abdominal Pain/Flank Pain Onset: Yesterday Context: Sudden Onset Timing: Continuous Quality: Aching Location: RUQ Current Severity: Moderate Maximum Severity: Moderate Worsened by: Nothing; Not Worsened By Car ride, Food or Movement Relieved by: Nothing; Not Relieved By Antacids, Food or Remaining Still Nausea/Vomiting/Emesis GI Symptom: Positive for Nausea and Vomiting (X1 in route to the emergency department) Onset: Today Quality: Negative for Blood streaks, Coffee ground or Hematemesis Diarrhea/Melena/Hematochezia GI Symptom: Negative for Diarrhea, Melena or Hematochezia Associated Symptoms Associated Symptoms: Negative for Dysuria, Frequency, Hematuria or Urgency LMP: Status post hysterectomy for abnormal vaginal bleeding Narrative Narrative: Patient is a 57-year-old heavyset woman who presents with right upper quadrant pain that started yesterday at 1600. Patient had onion rings for lunch. She believes it is her gallbladder. She has had problems tolerating greasy and fried foods in the past. There is a family history cholelithiasis. She denies constipation, diarrhea, black or maroon-colored stool. She denies hematemesis. She reported slight improvement after vomiting. She denies change in color of her urine. She feels there is emesis near the supra sternal notch. She describes that as a heartburn sensation. She denies imaging of her gallbladder in the past. She states that Dr. Henson did her appendectomy. There all notes authored by Dr. Okeefe for rectal bleeding. Rectal bleeding is determined to be due to internal hemorrhoid. Diarrhea at that time. Prior similar symptoms: No Recent Illness/Hospitalization: No [facility] Medical History Alcohol use COVID Hemorrhoid High cholesterol History of echocardiogram History of pain when walking History of stress test Injury of back Low vitamin D level Migraine headache Non-smoker Shortness of breath on exertion Wears glasses Home Medications psyllium husk-calcium 1 gram-60 mg capsule (Metamucil Plus Calcium) 1 cap PO DAILY 01/07/21 [History Last Taken Unknown] estradiol 2 mg tablet 2 mg PO DAILY #90 tabs 01/11/22 [Rx Last Taken Unknown] rosuvastatin 5 mg tablet (Crestor) 5 mg PO DAILY 06/22/22 [History Last Taken Unknown] cholecalciferol (vitamin D3) 25 mcg (1,000 unit) tablet (Vitamin D3) 25 mcg PO DAILY 08/06/22 [History Last Taken Unknown] Allergy/AdvReac Type Severity Reaction Status Date / Time chlordiazepoxide Allergy Unknown Verified 06/09/23 07:31 [From Librax (with clidinium)] cholestyramine Allergy Unknown Verified 06/09/23 07:31 [From Questran] clidinium bromide Allergy Unknown Verified 06/09/23 07:31 [From Librax (with clidinium)] sucrose [From Questran] Allergy Unknown Verified 06/09/23 07:31 acetaminophen [From Vicodin] AdvReac Nausea Verified 06/09/23 07:31 hydrocodone [From Vicodin] AdvReac Nausea Verified 06/09/23 07:31 Family History Mother Colon cancer Father Bleeding disorder Heart disease Sister Autoimmune disorder Uncle Colon cancer Surgical History H/O dilation and curettage H/O: hysterectomy History of colonoscopy (~10/03/17) History of hysteroscopy Hx of appendectomy Social History household members: spouse number of children: 2 current occupational status: retired history of recent travel: No Smoking Status: Never smoker alcohol intake: current alcohol intake frequency: holidays/special occasions only substance use type: does not use what type of physical activity do you participate in: walking frequency: 3-4 times per week seatbelt use: always do you feel safe at home: Yes additional social history: - Db ROS ROS ED Constitutional Constitutional ED: Reports chills and subjective; Denies fever(s), sweats or weight loss ENT ENT ED: Reports ear pain, rhinorrhea and sore throat Cardiovascular Cardiovascular: Reports other Details: Solid eructation. ; Denies chest pain, orthopnea, palpitations, paroxysmal nocturnal dyspnea or racing heartbeat Respiratory/Chest Respiratory/Chest: Denies cough, dyspnea, dyspnea on exertion, orthopnea or paroxysmal nocturnal dyspnea Gastrointestinal Gastrointestinal: Reports abdominal pain, nausea, vomiting and other Details: Pain does radiate through to her back in the intrascapular region. ; Denies constipation, diarrhea or melena Genitourinary Genitourinary ED: Denies dysuria, hematuria or urinary frequency Musculoskeletal Musculoskeletal: Reports back pain; Denies arthralgias, myalgias or neck pain Integumentary Denies rash Neurologic Neurologic: Denies paresthesias or weakness Endocrine Endocrinology: Denies polydipsia, polyphagia or polyuria Hematologic/Lymphatic Hematologic/Lymphatic: Denies easy bruising EXAM Physical Exam Narrative Exam Narrative: Appears ill. Her right hand is against her right upper quadrant. She appears ill. She does not appear toxic. Signs noted and unremarkable. Const Vital Signs: 06/09/23 07:31 Temperature 97.9 F Temperature Source Temporal Pulse Rate 95 Respiratory Rate 16 Blood Pressure 128/74 H Blood Pressure Mean 92 Pulse Ox 97 Oxygen Delivery Method Room Air Positive well nourished, well developed and obese; Negative for cachectic, contractures or unkempt General Appearance ED: well developed; Negative for unkempt, cachectic, contractures, NAD or pallor Nutritional Appearance: obese; Negative for cachectic HEENT Reports dry mucous membranes normocephalic and atraumatic Mouth ED: Yes dry mucous membranes Mouth: dry mucous membranes Eyes PERRL and EOMs intact bilaterally General Eye ED: Negative for pale conjunctiva or scleral icterus Neck no lymphadenopathy, supple and no JVD Resp normal respiratory effort and clear to auscultation bilaterally Cardio regular rate, regular rhythm, S1 normal heart sound, S2 normal heart sound and no murmurs GI non-distended and no masses; Negative for non-tender Auscultation: hypoactive bowel sounds Palpation: soft and tender RUQ, McBurney's point, periumbilical, suprapubic, Coyne's sign and Rovsing's sign; Negative for guarding or rigid Back/Spine no CVA tenderness Back/Spine Narrative: Inspection of the back is normal. Extremity full ROM General Extremety ED: Negative for edema or tenderness General Extremity: Negative for edema Neuro CN's II-XII intact bilaterally, moves all extremities and no sensory deficits noted Sensorium / Orientation: alert Psych mental status grossly normal and thought process normal Appearance: Negative for unkempt Skin no wounds General Skin Exam: Negative for jaundice or pallor Lesions: no lesions Rashes: no rashes MDM MDM MDM Narrative Medical decision making narrative: Chief complaint of right upper quadrant abdominal pain after greasy meal concern is that this represents biliary colic with cholelithiasis versus cholecystitis. There is no evidence of jaundice and patient not febrile. There is no concern presently of a sending cholangitis. Doubt renal etiology. With no respiratory symptoms and lungs clear to auscultation doubt right lower lobe pneumonia as the cause. Prior records were reviewed. Patient's liver enzymes in the past have been normal. She was medicated with 4 of Zofran for her nausea and 4 of morphine for her pain. Ultrasound of the right upper quadrant was ordered to evaluate for cholecystitis. History & Record Review Discussion w/independent historian: Patient and Significant other Lab Data Attestation: I reviewed the patient's lab results. Lab results narrative: See is unremarkable. Percent initial bolus lightly elevated at is unremarkable. The glucose is slightly elevated 129 with a normal CO2 anion gap. Lipase is normal. Labs: Laboratory Results - last 24 hr 06/09/23 07:50 WBC 8.5 RBC 4.43 Hgb 14.0 Hct 42.8 MCV 96.6 MCH 31.6 MCHC 32.7 RDW Std Deviation 42.9 RDW Coeff of Navjot 12.1 Plt Count 246 MPV 9.5 Immature Gran % (Auto) 0.500 Neut % (Auto) 73.7 H Lymph % (Auto) 21.0 [place] % (Auto) 4.0 Eos % (Auto) 0.6 Baso % (Auto) 0.2 Absolute Neuts (auto) 6.3 Absolute Lymphs (auto) 1.79 Nucleated RBC % 0 Sodium 137 Potassium 4.0 Chloride 107 Carbon Dioxide 25.0 Anion Gap 5 BUN 13 Creatinine 0.83 Estim Creat Clear Calc 79.09 Est GFR (MDRD) Af Amer 92 Est GFR (MDRD) Non-Af 76 BUN/Creatinine Ratio 15.7 Glucose 129 H Calcium 9.2 Total Bilirubin 0.40 AST 20 ALT 28 Alkaline Phosphatase 82 Total Protein 7.3 Albumin 3.4 Globulin 3.9 Albumin/Globulin Ratio 0.9 Lipase 20 Radiography Diagnostic Testing: Clinical Impression(s) from Imaging Studies Gallbladder Ultrasound 06/09/23 07:39 IMPRESSION: 1. Parenchymal liver disease. 2. Cholelithiasis. Electronically Signed: Rene Mahmood MD at 9:11 EDT , Ultrasound was reviewed. There is a gallstone noted at the neck of the gal lbladder. Patient still having discomfort. She states the initial dose of morphine took the edge off. Since she still looks uncomfortable still has significant tenderness in right upper quadrant 6 mg of morphine was ordered and surgeon on-call Dr. Lim was paged. Spoke with Dr. Dhaliwal. He will send his nurse practitioner down to have patient admitted with plans of OR later today. Management Discussion w/another healthcare provider: [employer] Discharge Plan Triage Chief Complaint: Abd Pain ED Provider: [facility]let Dx/Rx/DC Orders Clinical Impression: Cholelithiasis, Colic, biliary Prescriptions: No Action Metamucil Plus Calcium 1-60 gram-mg capsule 1 cap PO DAILY Rx Instructions: administer with large glass of water estradiol 2 mg tablet 2 mg PO DAILY Qty: 90 3RF rosuvastatin [Crestor] 5 mg tablet 5 mg PO DAILY cholecalciferol (vitamin D3) [Vitamin D3] 25 mcg (1,000 unit) Tablet 25 mcg PO DAILY Primary Care Provider: Helene Martin Referrals: Helene Martin, DO [Primary Care Provider] - Disposition Disposition: Acute Care Hospital [facility]
[2023-06-09] MEDS: 0.9% Normal Saline (1000mL) 1,000 ML 125 ML IV ×3 (07:57→23:26)
[2023-06-09] MEDS: Ondansetron 4 MG/2 ML Vial IV ×2 (07:57→15:35)
[2023-06-09] MEDS: Morphine 4 MG/ML Syringe IV (07:57)
[2023-06-09 08:02] LABS: Absolute Lymphocyte Count 1.79 X10^3/uL (0.83-4.51); Absolute Neutrophil Count 6.3 X10^3/uL (2.0-7.7); Basophil# 0.02 X10^3/uL; Basophil% 0.2 % (0-1); Eosinophil# 0.05 X10^3/uL; Eosinophils% 0.6 % (0-5); Hematocrit 42.8 % (37-47); Lymphocyte # 1.79 X10^3/ul (0.83-4.51); Mean Corp Hgb Conc 32.7 g/dL (32-36); Mean Corpuscular Hgb 31.6 pg (27.0-32.0); Mean Corpuscular Volume 96.6 fL (81-99); Mean Platelet Vol. 9.5 fl (6.2-12.0); Monocyte# 0.34 X10^3/uL; NRBC Flagged by Analyzer 0 % (0-5); Neutrophil % 73.7 % (47-70); Platelet Count 246 K/mm3 (150-450); RBC Distribution Width CV 12.1 % (11.6-14.6); RBC Distribution Width SD 42.9 fl (35.1-43.9); Red Blood Count 4.43 M/mm3 (4.2-5.4); White Blood Count 8.5 K/mm3 (4.4-11.0)
[2023-06-09 08:21] LABS: ALB/GLOB Ratio 0.9 RATIO (0.9-2.4); AST(SGOT) 20 U/L (15-37); Alanine Aminotransfer ALT/SGPT 28 U/L (13-56); Albumin, Serum 3.4 g/dL (3.2-5.0); Alkaline Phosphatase 82 U/L (45-117); Anion Gap 5 (5-15); BUN 13 mg/dL (7-18); BUN/Creat Ratio 15.7 RATIO (10-20); Calcium,Total 9.2 mg/dL (8.5-10.1); Chloride 107 mmol/L (98-107); Creatinine, Serum 0.83 mg/dL (0.55-1.02); EST Glomerular Filtration Rate 76 mL/min (>60); Est Glom Filt Rate - Afr Amer 92 mL/min (>60); Estimated Creatinine Clearance 79.09 ml/min; Globulin 3.9 g/dL (2.2-4.2); Glucose 129 mg/dL (74-106); Lipase 20 U/L (13-75); Protein, Total 7.3 g/dL (6.4-8.2); Sodium Level 137 mmol/L (136-145)
[2023-06-09] MEDS: morphine 8 MG/ML Syringe 6 MG IV (09:57)
--- NOTE | 2023-06-09 10:19 | EKG12_ITS ---
Test Reason : PRE OP Blood Pressure : / mmHG Vent. Rate : 074 BPM Atrial Rate : 074 BPM P-R Int : 126 ms QRS Dur : 084 ms QT Int : 384 ms P-R-T Axes : 037 051 103 degrees QTc Int : 426 ms Normal sinus rhythm Nonspecific ST and T wave abnormality Abnormal ECG Confirmed by LINN WALTERS, YARELI ([id number]), publishing editor NIDIA MULLER ([id number]) on 06/14/2023 11:21:08 AM Referred By: Confirmed By:MUNA ESTEVES MD
--- NOTE | 2023-06-09 10:31 | HP.PCM.SX_ITS ---
HPI - General HPI Narrative BENTON DON, is a 57 F who presents with abdominal pain. She says the pain started yesterday evening. She says she had had a few episodes of this in the past. She denies nausea or vomiting. She has the pain is in the right upper quadrant. It has not gone away and required multiple doses of pain medication. [facility] Medical History Alcohol use COVID Hemorrhoid High cholesterol History of echocardiogram History of pain when walking History of stress test Injury of back Low vitamin D level Migraine headache Non-smoker Shortness of breath on exertion Wears glasses Home Medications estradiol 2 mg tablet 2 mg PO DAILY #90 tabs 01/11/22 [Rx Last Taken 06/08/23] rosuvastatin 5 mg tablet (Crestor) 5 mg PO DAILY 06/22/22 [History Last Taken 06/08/23] cholecalciferol (vitamin D3) 25 mcg (1,000 unit) tablet (Vitamin D3) 25 mcg PO DAILY 08/06/22 [History Last Taken 06/08/23] Lactobacillus comb no.5-[id number] 300 million cell-250 mg capsule (Pro biotic and Acidophilus) 1 cap PO DAILY 06/09/23 [History Last Taken 06/08/23] celecoxib 200 mg capsule 200 mg PO DAILY 06/09/23 [History Last Taken 06/08/23] Allergy/AdvReac Type Severity Reaction Status Date / Time chlordiazepoxide Allergy Unknown Verified 06/09/23 07:31 [From Librax (with clidinium)] cholestyramine Allergy Unknown Verified 06/09/23 07:31 [From Questran] clidinium bromide Allergy Unknown Verified 06/09/23 07:31 [From Librax (with clidinium)] sucrose [From Questran] Allergy Unknown Verified 06/09/23 07:31 acetaminophen [From Vicodin] AdvReac Nausea Verified 06/09/23 07:31 hydrocodone [From Vicodin] AdvReac Nausea Verified 06/09/23 07:31 Family History Mother Colon cancer Father Bleeding disorder Heart disease Sister Autoimmune disorder Uncle Colon cancer Surgical History H/O dilation and curettage H/O: hysterectomy History of colonoscopy (~10/03/17) History of hysteroscopy Hx of appendectomy Social History household members: spouse number of children: 2 current occupational status: retired history of recent travel: No Smoking Status: Never smoker alcohol intake: current alcohol intake frequency: holidays/special occasions only substance use type: does not use what type of physical activity do you participate in: walking frequency: 3-4 times per week seatbelt use: always do you feel safe at home: Yes additional social history: - Db ROS Constitutional Constitutional: Denies anorexia, chills or fatigue Eyes Eyes: Denies blurry vision ENT HEENT: Denies abnormal hearing Cardiovascular Cardiovascular: Denies chest pain Respiratory/Chest Respiratory/Chest: Denies cough or dyspnea Gastrointestinal Gastrointestinal: Reports abdominal pain; Denies vomiting Genitourinary Genitourinary: Denies change in urinary stream Musculoskeletal Musculoskeletal: Denies abnormal gait Integumentary Integumentary: Denies new lesions Neurologic Neurologic: Denies abnormal gait Psychiatric Psychiatric: Denies anxiety Vital Signs Vital Signs Vital Signs: 06/09/23 07:31 06/09/23 10:00 06/09/23 10:01 Temperature 97.9 F 97.1 F L Temperature Source Temporal Temporal Pulse Rate 95 78 77 Respiratory Rate 16 14 14 Blood Pressure 128/74 H 139/71 H 139/71 H Blood Pressure Mean 92 93 93 Blood Pressure Source Monitor Pulse Ox 97 98 100 Oxygen Delivery Method Room Air Room Air Room Air 06/09/23 10:04 Temperature 97 F L Temperature Source Temporal Pulse Rate 79 Respiratory Rate 16 Blood Pressure 139/71 H Blood Pressure Mean 93 Blood Pressure Source Pulse Ox 98 Oxygen Delivery Method Room Air Weight Weight: 220 lb Body Mass Index (BMI) 32.5 Physical Exam Const oriented x3 and no apparent distress Resp normal respiratory effort Cardio regular rate and regular rhythm GI soft to palpation Inspection: Negative for abdominal distention Palpation: tender RUQ Extremity normal to inspection Results Lab / Micro Data 06/09/23 07:50 06/09/23 07:50 Labs: Laboratory Results - last 24 hr 06/09/23 07:50: WBC 8.5, RBC 4.43, Hgb 14.0, Hct 42.8, MCV 96.6, MCH 31.6, MCHC 32.7, RDW Std Deviation 42.9, RDW Coeff of Navjot 12.1, Plt Count 246, MPV 9.5, Immature Gran % (Auto) 0.500, Neut % (Auto) 73.7 H, Lymph % (Auto) 21.0, Seminole % (Auto) 4.0, Eos % (Auto) 0.6, Baso % (Auto) 0.2, Absolute Neuts (auto) 6.3, Absolute Lymphs (auto) 1.79, Nucleated RBC % 0, Sodium 137, Potassium 4.0, Chloride 107, Carbon Dioxide 25.0, Anion Gap 5, BUN 13, Creatinine 0.83, Estim Creat Clear Calc 79.09, Est GFR (MDRD) Af Amer 92, Est GFR (MDRD) Non-Af 76, BUN/Creatinine Ratio 15.7, Glucose 129 H, Calcium 9.2, Total Bilirubin 0.40, AST 20, ALT 28, Alkaline Phosphatase 82, Total Protein 7.3, Albumin 3.4, Globulin 3.9, Albumin/Globulin Ratio 0.9, Lipase 20 Radiology Impression Gallbladder Ultrasound 06/09/23 07:39 IMPRESSION: 1. Parenchymal liver disease. 2. Cholelithiasis. Electronically Signed: Rene Mahmood MD at 9:11 EDT , Assessment & Plan Assessment/Plan (1) Acute cholecystitis: PLAN: Patient has acute cholecystitis from stone lodged in the neck of her gallbladder. I recommended laparoscopic cholecystectomy. I discussed the procedure in detail with the patient. I discussed the risks, benefits, and alternatives of the procedure. I discussed the risks including but not limited to bleeding, infection, injury to surrounding organs such as the liver, bile duct, bowels. I did discuss the possibility of having to convert to an open procedure as well as the possibility that if any injuries occurred this may necessitate further surgery at a tertiary care center. Patient was given Zosyn in the emergency room and will be admitted to the floor until I am able to perform her surgery later today. Hussain Lim MD Pager: [facility] [address] [place] [address], [address] [place] [address] Office:
[2023-06-09] MEDS: Piperacil/Tazobactam 4.5 GM in 0.9% Normal Saline (100mL MB+) 100 ML IV (12:15)
--- NOTE | 2023-06-09 14:02 | NURSING ---
303 roxanne biliary colic due to cholethiasis
[2023-06-09] MEDS: 0.9% Saline Lock 10 ML Syringe IV ×2 (15:27→15:35)
[2023-06-09] MEDS: Morphine 2 MG/ML Syringe IV (15:27)
[2023-06-09] MEDS: Atorvastatin Calcium 10 MG Tablet PO (20:54)
[2023-06-09] MEDS: Acetaminophen 325 MG Tablet 650 MG PO (21:13)
[2023-06-09] MEDS: Piperacil/Tazobactam 3.375 GM in 0.9% Normal Saline (50mL MB+) 50 ML IV (23:21)
[2023-06-10] VITALS (12 sets, daily range): BP systolic 104–164; BP diastolic 59–87; PULSE 62–90; RESP 12–18; TEMP 36.1–37.1; O2SAT 92–98; BMI 33.3
--- NOTE | 2023-06-10 | GALL_PTH ---
PATIENT: BENTON DON LOC: MS3 U#:[id number] AGE/SX: 57/F [place]OM[place] [facility] [place]06/09/[address]: Dr. Hussain Lim MD : 1965 BED: 1 DIS: 06/10/2023 SPEC #: [id number] RECD: 06/10/23 13:37 STATUS: DEYVI NICOLE #: [id number] KALIN: 06/10/23 00:[address]: Hussain Lim DEPT: SURGICAL PATHOLOGY RECD BY: Neptali Durham ENTERED: 06/13/23 09:34 SP TYPE: JENNIFER ERICKSON DR: No Primary Care Phys Tissues: Gallbladder, NOS Procedures: Surgery Specimen Level III HEADER OPERATION: Laparoscopic cholecystectomy with IOC PRE-OP DIAGNOSIS: Acute cholecystitis TISSUE SUBMITTED: Gallbladder MICROSCOPIC DIAGNOSIS Gallbladder, cholecystectomy: Cholesterolosis, chronic cholecystitis and cholelithiasis. AM:landon 06/14/2023 MICROSCOPIC DESCRIPTION Slides are reviewed. GROSS DESCRIPTION Received is one container labeled with the patient's name and designated gallbladder. The specimen consists of a gallbladder measuring 11.5 cm in length and up to 5.0 cm in diameter. The external surface is pink-john, smooth and glistening for the most part. Focally it is granular, hemorrhagic and contains cautery artifact. The gallbladder contains green-yellow mucoid bile and one ovoid, john-light yellow stone measuring 1.4 cm in greatest dimension. The mucosa also shows several yellowish streaks consistent with cholesterolosis. The gallbladder wall measures 0.1 cm in thickness. Addictions Counselor sections from the gallbladder and the cystic duct are submitted in one cassette. / SJ:landon 06/13/2023 TC:3 CPT: 51740
[2023-06-10] MEDS: Piperacil/Tazobactam 3.375 GM in 0.9% Normal Saline (50mL MB+) 50 ML IV (05:10)
[2023-06-10] MEDS: Acetaminophen 325 MG Tablet 650 MG PO ×2 (05:54→15:14)
[2023-06-10] MEDS: Ondansetron 4 MG/2 ML Vial IV (05:54)
[2023-06-10 06:28] LABS: Absolute Lymphocyte Count 1.98 X10^3/uL (0.83-4.51); Absolute Neutrophil Count 2.2 X10^3/uL (2.0-7.7); Basophil# 0.01 X10^3/uL; Basophil% 0.2 % (0-1); Eosinophil# 0.03 X10^3/uL; Eosinophils% 0.7 % (0-5); Hematocrit 36.9 % (37-47); Hemoglobin 11.7 g/dL (12.0-15.0); Lymphocyte # 1.98 X10^3/ul (0.83-4.51); Mean Corp Hgb Conc 31.7 g/dL (32-36); Mean Corpuscular Hgb 31.3 pg (27.0-32.0); Mean Corpuscular Volume 98.7 fL (81-99); Mean Platelet Vol. 9.4 fl (6.2-12.0); Monocyte# 0.35 X10^3/uL; Monocyte% 7.6 % (0-10); NRBC Flagged by Analyzer 0 % (0-5); Neutrophil # 2.23 X10^3/uL (2.7-7.7); Neutrophil % 48.3 % (47-70); Platelet Count 231 K/mm3 (150-450); RBC Distribution Width CV 12.2 % (11.6-14.6); RBC Distribution Width SD 44.3 fl (35.1-43.9); Red Blood Count 3.74 M/mm3 (4.2-5.4); White Blood Count 4.6 K/mm3 (4.4-11.0)
[2023-06-10 06:58] LABS: Anion Gap 4 (5-15); BUN 10 mg/dL (7-18); BUN/Creat Ratio 12.7 RATIO (10-20); Calcium,Total 8.2 mg/dL (8.5-10.1); Chloride 109 mmol/L (98-107); Creatinine, Serum 0.79 mg/dL (0.55-1.02); EST Glomerular Filtration Rate 80 mL/min (>60); Est Glom Filt Rate - Afr Amer 97 mL/min (>60); Glucose 120 mg/dL (74-106); Sodium Level 140 mmol/L (136-145)
[2023-06-10] MEDS: 0.9% Normal Saline (1000mL) 1,000 ML 15 ML IV (09:46)
--- NOTE | 2023-06-10 10:23 | PCM.PN.SRG ---
Subjective Subjective Patient surgery was delayed due to scheduling an OR capability. She was comfortable overnight. Objective Data Objective Data Vital Signs: Vital Signs Temp Pulse Resp BP Pulse Ox O2 Del Method 98.3 F 62 18 104/59 L 97 Room Air 06/10/23 07:50 06/10/23 07:50 06/10/23 07:50 06/10/23 07:50 06/10/23 07:50 06/10/23 07:50 Oxygen Delivery Method Room Air Weight: 225 lb 8.526 oz Body Mass Index (BMI) 33.3 Intake & Output: Intake and Output for Last 24 Hours 06/08/23 06/09/23 06/10/23 23:59 23:59 23:59 Intake Total 2097.92 / 2097.92 1216.67 / 1216.67 Balance 2097.92 / 2097.92 1216.67 / 1216.67 Lab / Micro Data 06/10/23 06:15 06/10/23 06:15 Labs: Laboratory Results - last 24 hr 06/10/23 06:15: WBC 4.6, RBC 3.74 L, Hgb 11.7 L, Hct 36.9 L, MCV 98.7, MCH 31.3, MCHC 31.7 L, RDW Std Deviation 44.3 H, RDW Coeff of Navjot 12.2, Plt Count 231, MPV 9.4, Immature Gran % (Auto) 0.200, Neut % (Auto) 48.3, Lymph % (Auto) 43.0 H, Schoolcraft % (Auto) 7.6, Eos % (Auto) 0.7, Baso % (Auto) 0.2, Absolute Neuts (auto) 2.2, Absolute Lymphs (auto) 1.98, Nucleated RBC % 0, Sodium 140, Potassium 4.0, Chloride 109 H, Carbon Dioxide 27.0, Anion Gap 4 L, BUN 10, Creatinine 0.79, Estim Creat Clear Calc 83.10, Est GFR (MDRD) Af Amer 97, Est GFR (MDRD) Non-Af 80, BUN/Creatinine Ratio 12.7, Glucose 120 H, Calcium 8.2 L Assessment & Plan Assessment/Plan (1) Acute cholecystitis: PLAN: Patient surgery had to be pushed back from yesterday. She was comfortable overnight. Plan for laparoscopic cholecystectomy this morning. Hussain Lim MD Pager: [facility] [address] [place] [address], [facility] [address] [place] [address] Office:
--- NOTE | 2023-06-10 10:50 | RAD_ITS ---
EXAM: FL CHOLANGIOGRAPHY AND/OR PANCREATOGRAPHY CLINICAL INDICATION: IOC TECHNIQUE: Operative cholangiogram. Fluoroscopic guidance was provided by a physician. COMPARISON: No relevant prior studies available. FINDINGS: Contrast injected into the cystic duct demonstrates normal biliary tree. There are no filling defects to suggest common bile duct stone. There is visualization of the duodenum. Total fluoroscopy time of 5.7 seconds. Cumulative dose of 2.1 mGy. See operative note for additional information. RAD/Cholangiogram/ O R,Initial IMPRESSION: Normal operative cholangiogram. Electronically Signed: Rene Mahmood MD at 15:46 EDT ,
[2023-06-10] MEDS: Bupivacaine 0.25% 30 ML Vial (11:11)
--- NOTE | 2023-06-10 11:26 | OP.PCM_ITS ---
Report of Operation Date of Procedure: 06/10/23 Pre-Operative Diagnosis: Acute cholecystitis Post-Operative Diagnosis: Acute cholecystitis Surgery/Procedure Performed:: Laparoscopic cholecystectomy with cholangiogram Description of Surgical Findings:: Inflamed gallbladder Type of Anesthesia: General/Regional Specimen's removed: Gallbladder and contents Estimated Blood Loss (mL): 20 Description of Procedure: After obtaining informed consent patient was brought back to the operating room. General anesthesia was induced. The abdomen was prepped and draped in usual sterile fashion. A small midline incision was made superior to the umbilicus and deepened to the level of fascia. The fascia was elevated and incised. Next the peritoneum was elevated and incised in the same fashion. Finger sweep was performed and the Cortez trocar was placed into the abdomen. The balloon was inflated. The abdomen was inflated to 15 mmHg. Next a camera was introduced into the abdomen and the abdomen was inspected. Next under direct visualization three 5-mm ports were placed one subxiphoid and 2 subcostal. Next the gallbl adder was elevated and retracted toward the right shoulder. The peritoneum was stripped from the gallbladder. The infundibulum was located and retracted laterally. Next the triangle of Calot was dissected and the cystic duct and cystic artery were identified. Cholangiograms were performed. The Jerez clamp was used to clamp across the infundibulum and the catheter needle was inserted into the gallbladder. Under fluoroscopy contrast was instilled into the gallbladder and the common duct, cystic duct as well as proximal hepatic ducts were identified. There was good filling of the duodenum. There were no filling defects noted in the common bile duct. The clamp was removed as well as the needle and the infundibulum was grasped once more. Three hemolock clips were placed across the cystic duct. The cystic duct was then divided leaving 2 clips on the stump. The cystic artery was clipped and divided in the same fashion. The hook cautery was then used to take the gallbladder off of the gallbladder bed. Hemostasis was obtained. Surgicel powder was sprayed onto the gallbladder fossa. Gallbladder fossa was irrigated and no active bleeding or bile leakage was noted. Next the camera was introduced in the subxiphoid port. An Endopouch bag was placed through the umbilical port and the gallbladder was placed into it. The gallbladder was then removed through the umbilical incision. The camera was then reinserted through the umbilical port. The gallbladder fossa was inspected once more and noted to be hemostatic with no leaking bile. The abdomen was suctioned dry. The 5 mm ports were removed under direct visualization. The umbilical port was then removed and the air was removed from the abdomen. Next using an 0 Vicryl suture the umbilical fascia was closed in a [id number] fashion. The umbilical port site was irrigated local anesthetic was administered to all the incisions. All the incisions were closed with interrupted subcuticular 4-0 Monocryl sutures followed by Steri-Strips and dressings. The patient was awoken and taken to PACU in stable condition. Admit VTE Documentation VTE Mechan Device Prophylaxis: SCD's
--- NOTE | 2023-06-10 11:28 | PCM.DC.SUM ---
Providers Date of Admission: 06/09/23 Primary Care Physician: No Primary Care Phys Reason For Visit: ACUTE CHOLECYSTITIS Diagnosis Discharge Diagnosis (1) Acute cholecystitis: Status: Acute Code(s): K81.0 - Acute cholecystitis Plan: Patient surgery had to be pushed back from yesterday. She was comfortable overnight. Plan for laparoscopic cholecystectomy this morning. Hussain Lim MD Pager: [facility] [address] [place] [address], [address] [place] [address] Office: Medications at Discharge Home Medications estradiol 2 mg tablet 2 mg PO DAILY #90 tabs 01/11/22 rosuvastatin 5 mg tablet (Crestor) 5 mg PO DAILY 06/22/22 cholecalciferol (vitamin D3) 25 mcg (1,000 unit) tablet (Vitamin D3) 25 mcg PO DAILY 08/06/22 Lactobacillus comb no.2-[id number] 300 million cell-250 mg capsule (Probiotic and Acidophilus) 1 cap PO DAILY 06/09/23 celecoxib 200 mg capsule 200 mg PO DAILY 06/09/23 acetaminophen 325 mg tablet 650 mg (2 x 325 mg) PO Q4H PRN PRN PAIN/FEVER #0 tabs 06/10/23 oxycodone 5 mg tablet 5 - 10 mg (1 - 2 x 5 mg) PO Q4H PRN PRN Pain Score 4-10/10 5 days #20 tabs 06/10/23 Hospital Course Operations cholecystecomy Summary of Care Provided Hospital Course: Patient was admitted with acute cholecystitis. She was admitted to the hospital and started on antibiotics and the following day she was taken for laparoscopic cholecystectomy. After laparoscopic cholecystectomy she was started on a diet and once her pain was controlled with oral medications and she was tolerating diet she was discharged home. Weight / BMI Weight Weight: 225 lb 8.526 oz Body Mass Index (BMI) 33.3 ABG / Lab / Microbiology Data 06/10/23 06:15 06/10/23 06:15 Laboratory: Laboratory Results - last 24 hr 06/10/23 06:15: WBC 4.6, RBC 3.74 L, Hgb 11.7 L, Hct 36.9 L, MCV 98.7, MCH 31.3, MCHC 31.7 L, RDW Std Deviation 44.3 H, RDW Coeff of Navjot 12.2, Plt Count 231, MPV 9.4, Immature Gran % (Auto) 0.200, Neut % (Auto) 48.3, Lymph % (Auto) 43.0 H, Mclennan % (Auto) 7.6, Eos % (Auto) 0.7, Baso % (Auto) 0.2, Absolute Neuts (auto) 2.2, Absolute Lymphs (auto) 1.98, Nucleated RBC % 0, Sodium 140, Potassium 4.0, Chloride 109 H, Carbon Dioxide 27.0, Anion Gap 4 L, BUN 10, Creatinine 0.79, Estim Creat Clear Calc 83.10, Est GFR (MDRD) Af Amer 97, Est GFR (MDRD) Non-Af 80, BUN/Creatinine Ratio 12.7, Glucose 120 H, Calcium 8.2 L D/C Instructions Discharge Diet: Light diet - advance as tolerated Discharge Activity: May Not Drive (for 2-3 days or while taking narcotic pain medications.) and - (Do not drive, work heavy equipment or sign legal documents for 24 hours.) May shower in (days): 1 Lifting Restrictions: 20 lbs for 2 weeks Additional Activity Instructions: Pain medication may cause nausea. You should typically eat light foods as you take your pain medications. Pain medication may also cause constipation. If this is a problem for you, please discuss with your doctor. Call your doctor if your incision/area has: Continuous Slow Oozing, Sudden Increased Bleeding, Increased Pain/ Swelling, Increased Redness and Foul Smelling Discharge Call your doctor if you observe: Fever of 101 or Higher Suture Line Care: Avoid Pulling/Pushing and Avoid Pinching/Bending Remove Dressing in: 2 days Additional Dressing/Incision Instructions: Leave operative bandaids on for 2 days. When you remove dressing, leave Steri-Strips on until your follow-up appointment, or until the Steri-Strips fall off on their own. Please Follow Up With: Hussain Lim MD When: Please call to schedule 2 week follow up appointment. [phone] Meaningful Use Info Meaningful Use Diagnoses (Choose all that apply): None applicable Discharge Plan Admission Admit Date/Time: 06/09/23 10:27 Attending Provider: Hussain Lim Primary Care Provider: Care Physician,No Primary Discharge Orders/Prescriptions Prescriptions: New acetaminophen 325 mg Tablet 650 mg PO Q4H PRN PRN (Reason: PAIN/FEVER) Qty: 0 0RF oxycodone 5 mg Tablet 5 - 10 mg PO Q4H PRN PRN (Reason: Pain Score 4-10/10) 5 Days Qty: 20 0RF Continued estradiol 2 mg tablet 2 mg PO DAILY Qty: 90 3RF rosuvastatin [Crestor] 5 mg tablet 5 mg PO DAILY cholecalciferol (vitamin D3) [Vitamin D3] 25 mcg (1,000 unit) Tablet 25 mcg PO DAILY celecoxib 200 mg capsule 200 mg PO DAILY Patient Comments: TAKE 1 CAPSULE BY MOUTH EVERY DAY WITH FOOD Probiotic and Acidophilus 300-250 million cell-mg capsule 1 cap PO DAILY Patient Comments: PT GETS THE WADE KEYS OTC Referrals / Follow Up: Helene Martin DO [Med Staff - Grade Tamper] - Care Physician,No Primary [Primary Care Provider] - Disposition Disposition (needs filled in before D/C Order can be placed): Home, Self Care
[2023-06-10] MEDS: 0.9% Normal Saline (1000mL) 1,000 ML 125 ML IV (13:08)
--- NOTE | 2023-06-10 13:35 | CASEMGMT ---
RN CM Face to Face with patient for initial transition planning/care coordination assessment. RN CM introduced self and role at [facility]. Patient lying in bed, alert and oriented. Patient willing to participate in assessment and is able to answer all questions appropriately. Pt and mother present. Care providers, pharmacy, and demographics verified. Patient wishes to discharge home. Patient states she has no further needs or concerns at this time. CM to follow for discharge planning needs that may arise. PCP:Veronica Specialists:Denies Preferred Pharmacy:[facility] Retail Insurance:[employer] Prescription Benefit: yes LNOK:mandeep Dugan; Latesha Montezt, sister Living Arrangements:Pt lives with in a two story home with two steps to enter. Pt reports she is I in ADL's and denies concerns at home. Transportation: Pt drives self and denies concerns with transportation. Pt is able to transport until pt can drive. DME:Denies HHC:[facility] in past SNF:[facility] in past Disposition Plan:Home
--- NOTE | 2023-06-10 14:42 | PHA.DC_ITS ---
Pharmacy [facility] has performed discharge medication reconciliation and counseling for this patient. The patient's discharge medication list was reviewed for discrepancies and discrepancies were resolved. The patient was counseled on the following discharge medications and changes in medications for homegoing were reviewed. The Reason for Use, instructions for use, and potential side effects were reviewed for all new medications. The patient's questions regarding all of their medications were answered. 1. acetaminophen 650 mg PO Q4H PRN pain/fever 2. oxycodone 5-10 mg PO Q4H PRN pain 4-10/10 The patient's was able to verbally demonstrate an understanding of their discharge medications. Medications at Discharge Home Medications estradiol 2 mg tablet 2 mg PO DAILY #90 tabs 01/11/22 rosuvastatin 5 mg tablet (Crestor) 5 mg PO DAILY 06/22/22 cholecalciferol (vitamin D3) 25 mcg (1,000 unit) tablet (Vitamin D3) 25 mcg PO DAILY 08/06/22 Lactobacillus comb no.7-[id number] 300 million cell-250 mg capsule (Probiotic and Acidophilus) 1 cap PO DAILY 06/09/23 celecoxib 200 mg capsule 200 mg PO DAILY 06/09/23 acetaminophen 325 mg tablet 650 mg (2 x 325 mg) PO Q4H PRN PRN PAIN/FEVER #0 tabs 06/10/23 oxycodone 5 mg tablet 5 - 10 mg (1 - 2 x 5 mg) PO Q4H PRN PRN Pain Score 4-10/10 5 days #20 tabs 06/10/23
[2023-06-10] MEDS: oxyCODONE 5 MG Tablet PO (15:13)
== END 2023-06-10 18:52 | disposition home or self-care (01) ==
LOC: ED 10:26 → MS3 11:27
PROVIDERS: Emergency Medicine; Admitting Provider Surgery; Emergency Provider Surgery; Visit Provider Surgery
PROC: (CPT 47610; principal; 2023-06-10 10:10)
DX: K80.66 Calculus of gallbladder and bile duct with acute and chronic cholecystitis without obstruction (principal); E78.00 Pure hypercholesterolemia, unspecified; Z79.899 Other long term (current) drug therapy; E55.9 Vitamin D deficiency, unspecified
CPT/HCPCS: 47563; 99284; 36415; 74300; 76000; 76705; 80048; 80053; 83690; 85025; 87040; 88304; 93005; 96361; 96365; 96366; 96375; 96376; 99221; J7030; J7050; A4216; G0378; J2405

== ENCOUNTER → 2023-09-29 | Outpatient (CLI) | payer OTHER, SELFPAY ==
[2023-09-29 09:55] LABS: Hemoglobin A1c 5.8 % (3.8-5.6)
== END | disposition home or self-care (01) ==
PROVIDERS: Referring Provider Nurse Practitioner Women's Health; Visit Provider Nurse Practitioner Women's Health
DX: R73.09 Other abnormal glucose (principal)
CPT/HCPCS: 83036

== ENCOUNTER → 2023-10-10 | Outpatient (CLI) | payer OTHER, SELFPAY ==
--- NOTE | 2023-10-10 13:31 | BI_ITS ---
MAMMOGRAPHY - BILATERAL SCREENING REASON FOR EXAM: Female, 58 years old. Routine annual screening examination. PERTINENT HISTORY: Non-contributory. TECHNIQUE: Digital bilateral breast geeta (3D mammographic acquisition) in the CC and MLO projections. 2-D mediolateral oblique (MLO) and craniocaudad (CC) views of both breasts were obtained. CAD: Full Field Digital Mammography with Computer Added Detection was performed. COMPARISON: Comparison is made with prior study dated January 19, 2022. FINDINGS: Breast Composition: The breasts are heterogeneously dense, which may obscure small masses. There are no dominant masses or suspicious calcifications. Stable small benign-appearing bilateral axillary lymph nodes. No other significant abnormalities are identified. There has been no significant change since the prior study. BI/SCRN MAMM (CAD)W/GEETA BILAT IMPRESSION: Stable bilateral screening mammogram. Yearly follow-up mammogram recommended. (A) ASSESSMENT CATEGORY: BIRADS Category 2: Benign. A letter regarding these results will be sent to the patient by the facility within 30 days. Approximately 10% of breast cancers are not detected by mammography. A normal mammogram should not delay biopsy of a clinically suspicious abnormality. [id number] Electronically Signed: Tod Monroe MD at 15:26 EST ,
== END | disposition home or self-care (01) ==
LOC: OPBI 13:31
PROVIDERS: PCP Family Medicine; Referring Provider Nurse Practitioner Women's Health; Visit Provider Nurse Practitioner Women's Health
DX: Z12.31 Encounter for screening mammogram for malignant neoplasm of breast (principal)
CPT/HCPCS: 77063; 77067

== ENCOUNTER → 2024-02-01 | Outpatient (CLI) | payer OTHER, SELFPAY ==
[2024-02-01 09:33] LABS: Hemoglobin A1c 5.5 % (3.8-5.6)
== END | disposition home or self-care (01) ==
LOC: PAVLAB 08:57
PROVIDERS: PCP Family Medicine; Referring Provider Nurse Practitioner Women's Health; Visit Provider Nurse Practitioner Women's Health
DX: R73.09 Other abnormal glucose (principal)
CPT/HCPCS: 36415; 83036

== ENCOUNTER 2024-08-21 08:26 | Emergency (ER) | payer OTHER, SELFPAY ==
[2024-08-21 08:27] VITALS: BP 106/89; PULSE 108; RESP 16; TEMP 36.6; O2SAT 100; BMI 27.0
--- NOTE | 2024-08-21 08:44 | CT_ITS ---
STUDY: CT ABDOMEN AND PELVIS WITH CONTRAST REASON FOR EXAM: Female, 58 years old. Abdominal pain, nausea, vomiting and diarrhea RADIATION DOSAGE (If Supplied By Facility): CTDIvol = ( 14.80 ) mGy, DLP = ( 914.14 ) mGycm TECHNIQUE: Transaxial images were obtained from the dome of the diaphragm to the symphysis pubis without oral contrast. IV 100mL Isovue-300 was administered. Sagittal and coronal images were reconstructed. Individualized dose optimization techniques were used for this CT. COMPARISON: 07/30/2015 FINDINGS: The visualized lung bases are unremarkable. The visualized portions of the heart are within normal limits. Normal liver. There is non-visualization of the gallbladder, which may be secondary to either contraction or a prior cholecystectomy. Normal spleen. Normal pancreas. Normal bilateral adrenal glands. Normal right kidney. Normal left kidney. Normal visualized stomach. Normal small intestine. Normal colon. There is non-visualization of the appendix. Normal abdominal aorta. Normal inferior vena cava. Normal retroperitoneum. Normal urinary bladder. Normal abdominal wall. Healed fractures of the right superior and inferior pubic rami. CT/Abdomen/Pelvis W IV Cont ONLY IMPRESSION: Normal enhanced CT of the abdomen and pelvis. Electronically Signed: Kain Jordan MD at 11:03 EST ,
--- NOTE | 2024-08-21 08:45 | EDS_ITS ---
HPI HPI - GI History of Present Illness Chief Complaint: Nausea/Vomiting/Diarrhea Informant: patient Narrative Narrative: Patient is a 58-year-old female with history of hyperlipidemia, prior abdominal surgeries and on semaglutide (maintenance therapy now) presenting with abdominal pain, nausea, vomiting diarrhea. She states yesterday at 10 AM she developed diarrhea. She had multiple episodes of diarrhea throughout the day that just turned into mucus/water. At 11 PM yesterday she developed vomiting. She is concerned because the food she threw up was in her stomach since Tuesday (2 days prior). She has had intermittent diffuse abdominal pain that is temporarily better after she has a bowel movement or vomits. She states the pain feels like indigestion or epigastric region but does have some worsening pain in her left lower quadrant. Has had associated lightheadedness and decreased urine output but did urinate this morning. She states she still belching. She did take her Linzess for chronic constipation yesterday. She denies any blood in her vomit or her stool. Denies any recent antibiotics or history of C. difficile. Denies any chest pain or shortness of breath. Has history of appendectomy, cholecystectomy, hysterectomy with 1 ovary removed as well. Denies any alcohol use. Denies any sick contacts. [facility] Medical History Wears glasses Alcohol use High cholesterol Injury of back Migraine headache Non-smoker Shortness of breath on exertion History of pain when walking COVID History of echocardiogram History of stress test Low vitamin D level Hemorrhoid Home Medications ?Medication ?Instructions ?Recorded ?Last Taken ?Type rosuvastatin 5 mg tablet (Crestor) 5 mg PO DAILY 06/22/22 06/08/23 History cholecalciferol (vitamin D3) 25 25 mcg PO DAILY 08/06/22 06/08/23 History mcg (1,000 unit) tablet (Vitamin D3) Lactobacillus comb 1 cap PO DAILY 06/09/23 06/08/23 History no.5-YGI-lbuyerjzof 300 million cell-250 mg capsule (Probiotic and Acidophilus) acetaminophen 325 mg tablet 650 mg (2 x 325 mg) PO Q4H PRN PRN 06/10/23 Unknown Rx PAIN/FEVER #0 tabs semaglutide (weight loss) 0.5 0.5 mg subcut QWEEK 09/29/23 Unknown History mg/0.5 mL subcutaneous pen injector estradiol 2 mg tablet 2 mg PO DAILY #90 TABLETS 12/05/23 Unknown Rx ondansetron 4 mg disintegrating 4 mg PO Q8H PRN PRN Nausea #14 tabs 08/21/24 Unknown Rx tablet Allergy/AdvReac Type Severity Reaction Status Date / Time chlordiazepoxide (From Allergy Unknown Verified 08/21/24 08:28 Librax (with clidinium)) cholestyramine (From Allergy Nausea/Vomi Verified 08/21/24 08:28 Questran) ting clidinium bromide (From Allergy Unknown Verified 08/21/24 08:28 Librax (with clidinium)) sucrose (From Questran) Allergy Unknown Verified 08/21/24 08:28 hydrocodone (From Vicodin) AdvReac Nausea Verified 08/21/24 08:28 Family History Mother Colon cancer Father Bleeding disorder Heart disease Sister Autoimmune disorder Uncle Colon cancer Surgical History S/P laparoscopic cholecystectomy History of colonoscopy (~10/03/17) Hx of appendectomy H/O: hysterectomy History of hysteroscopy H/O dilation and curettage Social History household members: spouse number of children: 2 current occupational status: retired history of recent travel: No Smoking Status: Never smoker alcohol intake: current alcohol intake frequency: holidays/special occasions only substance use type: does not use what type of physical activity do you participate in: walking frequency: 3-4 times per week seatbelt use: always do you feel safe at home: Yes additional social history: - [facility] ED Constitutional Constitutional ED: Denies fever(s) Cardiovascular Cardiovascular: Denies chest pain Respiratory/Chest Respiratory/Chest: Denies cough or dyspnea Gastrointestinal Gastrointestinal: Reports abdominal pain, diarrhea, nausea and vomiting Genitourinary Genitourinary ED: Reports other Details: Decreased urination ; Denies dysuria Integumentary Denies rash Neurologic Neurologic: Reports weakness; Denies headache(s) EXAM Physical Exam Const Vital Signs: 08/21/24 08:27 08/21/24 10:27 Temperature 97.8 F Temperature Source Oral Pulse Rate 108 H 102 H Respiratory Rate 16 16 Blood Pressure 106/89 H 110/84 H Blood Pressure Mean 94 92 Pulse Ox 100 100 Oxygen Delivery Method Room Air Room Air Positive well nourished and well developed General Appearance ED: well developed and NAD; Negative for pallor HEENT Reports dry mucous membranes Mouth ED: Yes dry mucous membranes Mouth: dry mucous membranes Eyes PERRL Neck supple Resp normal respiratory effort and clear to auscultation bilaterally Cardio regular rate and regular rhythm GI non-tender Inspection: Negative for abdominal distention Auscultation: hyperactive bowel sounds Palpation: soft; Negative for tender, guarding or rigid Extremity General Extremety ED: Negative for edema General Extremity: Negative for edema Neuro Sensorium / Orientation: alert, oriented to person, oriented to place and oriented to time Motor Exam: general weakness Psych mental status grossly normal and thought process normal Skin no wounds General Skin Exam: Negative for jaundice or pallor MDM MDM MDM Narrative Medical decision making narrative: Patient is evaluated for nausea vomiting, diarrhea and diffuse abdominal pain. Differential includes AMBROCIO, dehydration, gastroenteritis, pancreatitis, colitis, diverticulitis, small bowel obstruction and electrolyte abnormality. Patient ordered IV fluids, Zofran and Pepcid Will obtain CT of the abdomen and pelvis as well as labs including CBC, CMP, lipase and urinalysis and reevaluate. Patient's lab work consistent with some mild dehydration (likely hemoconcentration) with a hemoglobin of 15.5. Her kidney function and bicarb however are normal. Urinalysis normal. Lipase normal. No significant electrolyte abnormalities. CT of the abdomen pelvis does not show any acute process. On repeat evaluation patient states she is feeling better. Is able to tolerate p.o. challenge. At this time will be discharged home with conservative treatment and prescription for Zofran. She is agreeable with this plan of care. Given return precautions. Counseled to push fluids. Discharged home in stable and improved condition. Lab Data Attestation: I reviewed the patient's lab results. Labs: Laboratory Results - last 24 hr 08/21/24 08/21/24 08:37 11:22 WBC 8.8 RBC 4.91 Hgb 15.5 H Hct 46.6 MCV 94.9 MCH 31.6 MCHC 33.3 RDW Std Deviation 42.5 RDW Coeff of Navjot 12.3 Plt Count 377 MPV 9.4 Immature Gran % (Auto) 0.200 Neut % (Auto) 55.9 Lymph % (Auto) 37.7 [place] % (Auto) 4.9 Eos % (Auto) 1.0 Baso % (Auto) 0.3 Absolute Neuts (auto) 4.9 Absolute Lymphs (auto) 3.30 Nucleated RBC % 0 Sodium 137 Potassium 4.2 Chloride 108 H Carbon Dioxide 22.0 Anion Gap 7 BUN 18 Creatinine 0.96 Estim Creat Clear Calc 74.43 Est GFR (MDRD) Af Amer 77 Est GFR (MDRD) Non-Af 63 BUN/Creatinine Ratio 18.7 Glucose 106 Calcium 9.8 Total Bilirubin 0.70 AST 17 ALT 25 Alkaline Phosphatase 85 Total Protein 7.7 Albumin 3.7 Globulin 4.0 Albumin/Globulin Ratio 0.9 Lipase 45 Urine Color Yellow Urine Clarity Sl. Cloudy Urine pH 5.0 Ur Specific [place] 1.015 Urine Protein 30 H Urine Glucose (UA) Normal Urine Ketones 5 H Urine Occult Blood Negative Urine Nitrite Negative Urine Bilirubin Negative Urine Urobilinogen Normal Ur Leukocyte Esterase 25 H Urine RBC 0 SEEN Urine WBC 0-5 SEEN Ur Squamous Epith Cells 0-5 SEEN Urine Bacteria 0 SEEN Urine Mucus 0 SEEN Radiography Diagnostic Testing: Clinical Impression(s) from Imaging Studies Abdomen/Pelvis CT 08/21/24 08:44 IMPRESSION: Normal enhanced CT of the abdomen and pelvis. Electronically Signed: Kain Jordan MD at 11:03 EST Reading Location ID and State: [address] [place] [address] Tel , Service support , Discharge Plan Triage Chief Complaint: Nausea/Vomiting/Diarrhea ED Provider: Annette Smith Dx/Rx/DC Orders Clinical Impression: Dehydration, Nausea vomiting and diarrhea Instructions: ED Dehydration (Adult), ED Gastroenteritis, Viral (Adult) Prescriptions: New ondansetron 4 mg tablet,disintegrating 4 mg PO Q8H PRN PRN (Reason: Nausea) Qty: 14 0RF No Action rosuvastatin [Crestor] 5 mg tablet 5 mg PO DAILY semaglutide (weight loss) 0.5 mg/0.5 mL pen injector 0.5 mg subcut QWEEK Rx Instructions: administer weeks 5 through 8 of therapy cholecalciferol (vitamin D3) [Vitamin D3] 25 mcg (1,000 unit) Tablet 25 mcg PO DAILY Probiotic and Acidophilus 300-250 million cell-mg capsule 1 cap PO DAILY Patient Comments: PT GETS THE [facility] DI OTC acetaminophen 325 mg Tablet 650 mg PO Q4H PRN PRN (Reason: PAIN/FEVER) Qty: 0 0RF estradiol 2 mg tablet 2 mg PO DAILY Qty: 90 1RF Primary Care Provider: Enrique Saini Referrals: Enrique Saini MD [Primary Care Provider] - Activity Restrictions/Additional Instructions: The cause of your workup today is not clear, it could be viral or food poisoning. However, there is no signs of acute infection (diverticulitis), pancreatitis or acute kidney injury. Continue to push fluids at home. Return if you have a progression or worsening your symptoms. Print Language: Citizen Of [place] Disposition Disposition: Home, Self Care
[2024-08-21 08:55] LABS: Absolute Neutrophil Count 4.9 X10^3/uL (2.0-7.7); Basophil# 0.03 X10^3/uL; Basophil% 0.3 % (0-1); Eosinophil# 0.09 X10^3/uL; Hematocrit 46.6 % (37-47); Hemoglobin 15.5 g/dL (12.0-15.0); Lymphocyte % 37.7 % (19-41); Mean Corp Hgb Conc 33.3 g/dL (32-36); Mean Corpuscular Hgb 31.6 pg (27.0-32.0); Mean Corpuscular Volume 94.9 fL (81-99); Mean Platelet Vol. 9.4 fl (6.2-12.0); Monocyte# 0.43 X10^3/uL; Monocyte% 4.9 % (0-10); NRBC Flagged by Analyzer 0 % (0-5); Neutrophil # 4.89 X10^3/uL (2.7-7.7); Neutrophil % 55.9 % (47-70); Platelet Count 377 K/mm3 (150-450); RBC Distribution Width CV 12.3 % (11.6-14.6); RBC Distribution Width SD 42.5 fl (35.1-43.9); Red Blood Count 4.91 M/mm3 (4.2-5.4); White Blood Count 8.8 K/mm3 (4.4-11.0)
[2024-08-21 09:13] LABS: ALB/GLOB Ratio 0.9 RATIO (0.9-2.4); AST(SGOT) 17 U/L (15-37); Alanine Aminotransfer ALT/SGPT 25 U/L (13-56); Albumin, Serum 3.7 g/dL (3.2-5.0); Alkaline Phosphatase 85 U/L (45-117); Anion Gap 7 (5-15); BUN 18 mg/dL (7-18); BUN/Creat Ratio 18.7 RATIO (10-20); Calcium,Total 9.8 mg/dL (8.5-10.1); Chloride 108 mmol/L (98-107); Creatinine, Serum 0.96 mg/dL (0.55-1.02); EST Glomerular Filtration Rate 63 mL/min (>60); Est Glom Filt Rate - Afr Amer 77 mL/min (>60); Estimated Creatinine Clearance 74.43 ml/min; Glucose 106 mg/dL (74-106); Lipase 45 U/L (13-75); Potassium 4.2 mmol/L (3.5-5.1); Protein, Total 7.7 g/dL (6.4-8.2); Sodium Level 137 mmol/L (136-145)
[2024-08-21] MEDS: Ondansetron 4 MG/2 ML Vial IV (09:15)
[2024-08-21] MEDS: Famotidine 200 MG/20 ML MDV 20 MG in 0.9% Normal Saline (Pres. free 8 ML 300 MG IV (09:16)
[2024-08-21] MEDS: 0.9% Normal Saline (1000mL) 1,000 ML 999 ML IV (09:17)
[2024-08-21 10:27] VITALS: BP 110/84; PULSE 102; RESP 16; O2SAT 100
[2024-08-21 11:26] LABS: Bacteria 0 SEEN /hpf (None Seen); Mucous, Urine 0 SEEN /hpf (<or=2+); Red Blood Cells-Urine 0 SEEN /hpf (0-5)
[2024-08-21 11:30] LABS: Color, Urine Yellow (Yellow); Glucose, Dipstick Normal (Normal); Ketone-Dipstick 5 mg/dl (Negative); Leukocyte Esterase-Dipstick 25 /ul (Negative); Nitrite-Dipstick Negative (Negative); Occult Blood-Urine Negative /ul (Negative); Protein-Dipstick 30 mg/dl (Negative); Specific Gravity, Urine 1.015 (1.002-1.030); Urine Bilirubin Dipstick Negative (Negative); Urine Clarity Sl. Cloudy (Clear); Urine Urobilinogen Normal (Normal)
[2024-08-21 11:42] LABS: Squamous Epithelial Cells - UA 0-5 SEEN /hpf (5-10); White Blood Cells 0-5 SEEN /hpf (0-5)
[2024-08-21 12:00] VITALS: BP 112/78; PULSE 100; RESP 16; O2SAT 100
[2024-08-21 12:53] VITALS: BP 110/68; PULSE 94; RESP 14; TEMP 36.6; O2SAT 100
== END 2024-08-21 12:57 | disposition home or self-care (01) ==
PROVIDERS: Emergency Provider Emergency Medicine; PCP Family Medicine; Visit Provider Emergency Medicine
DX: E86.0 Dehydration (principal); R11.2 Nausea with vomiting, unspecified; R19.7 Diarrhea, unspecified; Z86.16 Personal history of COVID-19
CPT/HCPCS: 74177; 80053; 81001; 83690; 85025; 96374; 99283; Q9967; A4216; J2405

== ENCOUNTER → 2024-11-19 | Outpatient (CLI) | payer OTHER, SELFPAY ==
--- NOTE | 2024-11-19 12:07 | BI_ITS ---
PROCEDURE: SCRN MAMM (CAD)W/GEETA BILAT REASON FOR EXAM: F, Age 59 y/o, no family history. Routine annual follow-up. TECHNIQUE: Bilateral screening digital breast tomosynthesis with 2D and 3D images. Computer aided detection. COMPARISON: Prior exam(s) dating back to October 10, 2023.. FINDINGS: The breasts are extremely dense which lowers the sensitivity of mammography. Stable small benign-appearing bilateral axillary lymph nodes. No suspicious masses, areas of developing architectural distortion, or suspicious calcifications. BI/SCRN MAMM (CAD)W/EGETA BILAT IMPRESSION: BI-RADS 2: BENIGN. RECOMMEND ANNUAL MAMMOGRAPHIC SCREENING. Follow-up code: Routine Follow-up The patient will be notified of the results by letter. Reading Location: [id number]
== END | disposition home or self-care (01) ==
PROVIDERS: PCP Family Medicine; Referring Provider Nurse Practitioner Women's Health; Visit Provider Nurse Practitioner Women's Health
DX: Z12.31 Encounter for screening mammogram for malignant neoplasm of breast (principal)
CPT/HCPCS: 77063; 77067

== ENCOUNTER → 2025-04-05 | Outpatient (CLI) | payer OTHER, SELFPAY ==
[2025-04-05 10:42] LABS: Hematocrit 40.5 % (37-47); Hemoglobin 13.5 g/dL (12.0-15.0); Immature Granulocytes Count 0.010 X10^3/uL (0.0-0.0); Mean Corp Hgb Conc 33.3 g/dL (32-36); Mean Corpuscular Volume 95.3 fL (81-99); Mean Platelet Vol. 9.9 fl (6.2-12.0); NRBC Flagged by Analyzer 0 % (0-5); Platelet Count 313 K/mm3 (150-450); RBC Distribution Width CV 11.9 % (11.6-14.6); RBC Distribution Width SD 41.4 fl (35.1-43.9); Red Blood Count 4.25 M/mm3 (4.2-5.4); White Blood Count 7.4 K/mm3 (4.4-11.0)
[2025-04-05 12:29] LABS: AST(SGOT) 23 U/L (<=31); Alanine Aminotransfer ALT/SGPT 34 U/L (<=34); Albumin, Serum 4.2 g/dL (3.5-5.0); Alkaline Phosphatase 71 U/L (35-104); Anion Gap 11 (5-15); BUN 13 mg/dL (4-19); BUN/Creat Ratio 14.3 RATIO (10-20); Calcium,Total 9.5 mg/dL (7.6-11.0); Carbon Dioxide 24.9 mmol/L (21.0-32.0); Chloride 104 mmol/L (98-108); Cholesterol 199 mg/dL (<=200); Globulin 2.9 g/dL (2.2-4.2); Glucose 92 mg/dL (70-99); Low Density Lipoprotein Calc. 113 mg/dL; Potassium 4.1 mmol/L (3.3-5.1); Triglycerides 132 mg/dL; Very Low Density Lipoprotein 26 mg/dL (5-40); Vitamin D,25 Hydroxy 42.7 ng/mL (30-100); cholesterol:hdl ratio screen 3.34
== END | disposition home or self-care (01) ==
PROVIDERS: PCP Family Medicine; Referring Provider Family Medicine
DX: Z00.00 Encounter for general adult medical examination without abnormal findings (principal)
CPT/HCPCS: 36415; 80053; 80061; 82306; 83036; 85025

== ENCOUNTER → 2025-05-14 | Outpatient (CLI) | payer OTHER, SELFPAY ==
--- NOTE | 2025-05-14 10:54 | NEURO ---
NCS and/or EMG Patient Report Ordering Doctor: Héctor Jeffery NP DATE OF SERVICE: 05/14/25 Clinical Summary: 59 year old female patient with symptoms of sharp pains in the right shoulder blade region and sometimes radiates in the right upper extremity. Nerve Conduction Studies Summary: Nerve conduction studies were performed in the right upper extremity. The right median-D2 SNAP distal latency was prolonged. The right ulnar-D5 SNAP distal latency was prolonged. Needle Examination Summary: Needle examination of select muscles of the right upper extremity was normal. Impression: This is an abnormal study. There is electrodiagnostic evidence of a mild, right median mononeuropathy at the wrist (carpal tunnel syndrome), with sensory fiber demyelination There is no electrodiagnostic evidence of a right cervical radiculopathy or brachial plexopathy. Multi Select Codes Neurology Neurology Interp Codes: 29106-15 Musc test done w/n test comp (interp) (1) and 96543-73 Nrv cndj test 7-8 studies (interp)
== END | disposition home or self-care (01) ==
LOC: PSN 10:09
PROVIDERS: PCP Family Medicine
DX: M25.511 Pain in right shoulder (principal)
CPT/HCPCS: 95886; 95910